=== PATIENT | female | born 1935 | race Caucasian/White ===

== ENCOUNTER 2017-08-31 20:12 | Inpatient (IN) | payer OTHER ==
[2017-08-31] VITALS (9 sets, daily range): BP systolic 93–113; BP diastolic 50–74; PULSE 66–77; TEMP 36.4; O2SAT 90–97; Ht 149.9 cm; Wt 45.3 kg
[~2017-08-31] VITALS: Ht 149.9 cm; Wt 45.3 kg
[~2017-08-31 20:12] MED LIST: CLTP PO; CYAN1TAB2 PO; IBUP-1050 PO
[2017-08-31] MEDS ORDERED: NiCARDipine HCL INJ 2.5 MG/ML 10 ML AMP ONE (20:33)
[2017-08-31] MEDS ORDERED: NITROGLYCERIN/D5W 100MCG/ML 20ML SYR ONE (20:34)
[2017-08-31] MEDS ORDERED: FENTANYL CITRATE INJ 50 MCG/1 ML 2 ML VIAL ONE (20:34)
[2017-08-31] MEDS ORDERED: HEPARIN SOD (PORCINE) 1000 UNIT/ML 10 ML VIAL ONE (20:34)
[2017-08-31] MEDS ORDERED: MIDAZOLAM HCL 1 MG/ML 2ML VIAL ONE (20:34)
--- NOTE | 2017-08-31 20:38 | DIAGNOSTIC IMAGING REPORT ---
CHEST ONE VIEW PORTABLE CLINICAL HISTORY: 82 years-old Female presenting with Chest Pain. TECHNIQUE: Portable upright AP view of the chest was obtained. COMPARISON: 03/11/2013. FINDINGS: Atherosclerosis of aortic arch. Cardiac silhouette mildly enlarged. Mild prominence of pulmonary vasculature comparison the prior. Minimal linear opacities at the lung bases. Degenerative changes of the thoracic spine. Upper abdomen normal. IMPRESSION: 1. Minimal basilar atelectasis suggested. 2. Mild cardiomegaly with suggestion of volume overload. No jewels pulmonary edema. Electronically signed by: Chago Perez M.D. 08/31/2017 8:37 PM Dictated Date/Time: 08/31/2017 8:33 PM
[2017-08-31 20:39] LABS: ISTAT CREATININE 0.6 mg/dl (0.6-1.3); ISTAT IONIZED CALCIUM 1.17 mmol/l (1.12-1.32); ISTAT POTASSIUM 3.6 mEq/L (3.3-5.0)
[2017-08-31 20:41] LABS: BASO % 0.3 %; BASO ABS # 0.02 K/uL (0-0.2); EOS % 0.7 %; EOS ABS # 0.04 K/uL (0-0.5); HEMATOCRIT 37.8 % (37-47); HEMOGLOBIN 13.2 g/dL (12.0-16.0); IG# 0.01 K/uL (0.00-0.02); LYMPH % 36.2 %; LYMPH ABS # 2.12 K/uL (1.2-3.4); MEAN CELL VOLUME 88.9 fL (80-100); MEAN CORPUSCULAR HEMOGLOBIN 31.1 pg (25-34); MEAN CORPUSCULAR HGB CONC 34.9 g/dl (32-36); MEAN PLATELET VOLUME 8.6 fL (7.4-10.4); MONO % 6.5 %; MONO ABS # 0.38 K/uL (0.11-0.59); NEUT % 56.1 %; NEUT ABS # 3.29 K/uL (1.4-6.5); PLATELET COUNT 250 K/uL (130-400); RED CELL DISTRIBUTION WIDTH CV 13.8 % (11.5-14.5); RED CELL DISTRIBUTION WIDTH SD 44.8 fL (36.4-46.3); WHITE BLOOD COUNT 5.86 K/uL (4.8-10.8)
[2017-08-31] MEDS ORDERED: SODIUM CHLORIDE 0.9% 1000ML 1,000 ML IV STA (20:42)
[2017-08-31 20:49] LABS: BLOOD UREA NITROGEN 6 mg/dl (7-18); CALCIUM 8.6 mg/dl (8.5-10.1); CARBON DIOXIDE 24 mmol/L (21-32); CREATININE 0.61 mg/dl (0.60-1.20); GLUCOSE 112 mg/dl (70-99); POTASSIUM 3.5 mmol/L (3.5-5.1); SODIUM 136 mmol/L (136-145)
[2017-08-31 20:57] LABS: CKMB 1.5 ng/ml (0.5-3.6)
[2017-08-31] MEDS ORDERED: CALC500C3 PO (21:00)
[2017-08-31] MEDS ORDERED: ESCI1TAB9 PO (21:00)
[2017-08-31] MEDS ORDERED: ATOR-22 PO (21:00)
[2017-08-31] MEDS ORDERED: DONE1TAB25 PO (21:00)
[2017-08-31] MEDS ORDERED: LORA-741 PO (21:00)
[2017-08-31] MEDS ORDERED: ASPI-589 PO (21:00)
[2017-08-31] MEDS ORDERED: AMLO-110 PO (21:00)
[2017-08-31] MEDS ORDERED: METOPROLOL TARTRATE 1 MG/ML VIAL ONE (21:09)
--- NOTE | 2017-08-31 21:14 | HISTORY & PHYSICAL EXAMINATION ---
DATE OF ADMISSION: 08/31/2017 CHIEF COMPLAINT: Chest pain. HISTORY OF PRESENT ILLNESS: This 82-year-old white female reports onset this evening time ill-defined of substernal chest discomfort "like someone punched me." mid substernal in origin, not associated with nausea, vomiting, diaphoresis, not associated with dyspnea, persistent on arrival to the Emergency Department. The patient has never had pain of this severity before. PAST MEDICAL HISTORY: Significant for hypertension and hyperlipidemia. The patient denies knowledge of diabetes mellitus though records suggest otherwise. The patient has no history of atherosclerotic cardiovascular disease, prior myocardial infarction or stroke. She has no history of congestive heart failure. PAST SURGICAL HISTORY: Significant for tubal ligation. CURRENT MEDICATIONS: Per medical records include only calcium plus vitamin D, ibuprofen p.r.n. ALLERGIES: The patient denies knowledge of IV contrast dye or iodine allergy. Records reflect no known drug allergy. FAMILY HISTORY: Significant for coronary artery disease only in the patient's father. SOCIAL HISTORY: The patient is an ongoing smoker and knows she needs to quit. REVIEW OF SYSTEMS: The patient denies bleeding problems such as epistaxis, hemoptysis, hematemesis, hematuria, melena, hematochezia. Denies palpitations, skipped or irregular heartbeats. Further review of systems negative. PHYSICAL EXAMINATION: VITAL SIGNS: Blood pressure 150/98, heart rate is 68 and regular, respiratory rate 16. The patient is afebrile. GENERAL: She is awake, alert, oriented x3, shivering on my arrival to her bed in the Emergency Department. NECK: Jugular venous pressure is minimally elevated at 60 degrees. Carotids arteries bilaterally 2/4 without bruits. Mallampati score of 4 is noted. HEART: Demonstrates a nonpalpable . No gallop or murmur appreciated. Rhythm is regular. LUNGS: Bilaterally clear to auscultation. No crackles or wheezing is noted. Hyperinflation is suggested. ABDOMEN: Soft, nontender with normoactive bowel sounds present. No pulsatile mass, no organomegaly, no bruits are appreciated. EXTREMITIES: Well perfused. No pretibial edema. Normal right hand Jaden's test is noted. EKG: Demonstrates sinus rhythm, normal axis, anteroseptal Q-waves with hyperacute ST elevation in V1 through V4. Reciprocal inferior ST depression is noted. LABORATORY DATA: Including BMP, CBC are pending. Chest x-ray done in the Emergency Department single view confirms some degree of hyperinflation, calcified aortic knob, normal heart size, no infiltrate, consolidation or effusion is noted. IMPRESSION: Acute versus subacute anteroseptal myocardial infarction. RECOMMENDATIONS: Urgent cardiac catheterization. Discussed with the patient indications for risks and alternatives to cardiac catheterization and possible percutaneous coronary intervention. All questions answered. ASA score of 2 is noted. MTDD
[2017-08-31] MEDS ORDERED: CLOPIDOGREL BISULFATE 300 MG TAB PO ONE (21:38)
[2017-08-31] MEDS ORDERED: ATROPINE SULFATE 0.1 MG/ML 5ML SYR IV PRN (21:45)
[2017-08-31] MEDS ORDERED: ONDANSETRON INJ 2 MG/ML 2 ML VIAL IV PRN (21:45)
[2017-08-31] MEDS ORDERED: SODIUM CHLORIDE 0.9% 1000ML 1,000 ML IV SCH (21:45)
[2017-08-31] MEDS ORDERED: NITROGLYCERIN 0.4 MG SL PER TAB CHARGE SL PRN (21:45)
[2017-08-31] MEDS ORDERED: DC ALL ANTICOAGULANTS ONE (21:45)
--- NOTE | 2017-08-31 22:22 | Critical Care Consultation ---
Critical Care Consultation Date of Consultation: Aug 31, 2017. Attending Physician: Reason for Consultation: 82-year-old female status post cardiac catheterization with bare-metal stent to the proximal LAD requiring close cardiac monitoring. History of Present Illness Patient is an 82-year-old female who was enjoying her typical state of health up until this evening. She reports that at approximately 7:30 PM, while ambulating to her house, she developed lightheadedness with associated chest pain. This caused her to fall to the ground. She denies striking her head or any loss of consciousness. Her is present and reports that she yelled for him immediately and he came to help her from the ground. He immediately called 911. In route to the emergency department, a heart alert was called. In route to the emergency department, the patient receives 2 nitroglycerin doses , 4 baby aspirin, and 4 mg Zofran. Her blood pressure was found to drop after nitroglycerin administration. She responded to 300 mL of fluid. She had persistent chest pain upon arrival to the emergency department. She was also expressing shortness of breath. In the emergency department, the patient received heparin loading dose as well as nicardipine 0.5 mg and fentanyl. She was directed to the catheterization lab where she underwent RIGHT-sided groin approach demonstrating a 100% occluded proximal LAD. Bare-metal stent was deployed with successful revascularization. Patient was experiencing AIVR runs. She received 5 mg IV metoprolol. She received 2 separate rounds of fentanyl and Versed during the procedure. She was pain-free after procedure. Upon arrival in the ICU, the patient complains of no pain at this time. She reports that she had no symptoms of pain for some breath prior to today. She does admit to smoking at least 1 pack of cigarettes per day. In addition, she drinks approximately 3 beers per day. Patient is a known history of high blood pressure. Family reports a history of dementia as well. She also reports high cholesterol. Patient offers no complains this time. She denies any headaches, dizziness, lightheadedness, blurry vision, double vision, slurred speech, facial droop, unilateral weakness/numbness, chest pain, palpitations, pleuritic pain, short of breath, nausea, vomiting, abdominal pain, or extremity pain. Past Medical/Surgical History Medical Problems: (1) Diab Viki Wo Compl, Type Ii Or Unspec Type, Not Uncntrld (2) Hyperlipidemia Nec/Nos (3) Hypoglycemia Nos Family History Cancer Heart disease Hypertension Heart Disease - Father Social History Smoking Status: Current Every Day Smoker Smokeless Tobacco Use: No Alcohol Use: occasionally Drug Use: none Marital Status: Housing Status: lives with family Occupation Status: retired Allergies Coded Allergies: No Known Allergies (Unverified , 11/17/06) Home Medications Scheduled Amlodipine (Norvasc), 5 MG PO DAILY Aspirin (Aspirin Adult Low Dose), 81 MG PO DAILY Atorvastatin (Lipitor), 20 MG PO HS Donepezil Hydrochloride (Donepezil Hcl), 5 MG PO HS Escitalopram Oxalate (Lexapro), 10 MG PO DAILY Scheduled PRN Calcium Carbonate (Tums), 500 MG PO UD PRN for Indigestion Lorazepam (Ativan), 0.25 MG PO UD PRN for Severe Anxiety Current Inpatient Medications Current Inpatient Medications Medications (Trade) Dose Ordered Sig/Natalia Route Start Time Stop Time Status Last Admin Dose Admin Nitroglycerin (Nitrostat Tab) 0.4 mg UD PRN SL 08/31/17 21:45 09/30/17 21:44 Sodium Chloride 1,000 ml @ 75 mls/hr [id number] IV 08/31/17 21:45 09/01/17 07:44 Atropine Sulfate (Atropine Sulfate 0.1MG/Ml Inj) 0.5 mg ONE PRN IV 08/31/17 21:45 09/30/17 21:44 Ondansetron HCl (Zofran Inj) 4 mg Q6H PRN IV 08/31/17 21:45 09/30/17 21:44 Aspirin (Ecotrin Tab) 81 mg QAM PO 09/01/17 09:00 10/01/17 08:59 Clopidogrel Bisulfate (plAVix TAB) 75 mg QAM PO 09/01/17 09:00 10/01/17 08:59 Atorvastatin Calcium (Lipitor Tab) 40 mg QAM PO 09/01/17 09:00 10/01/17 08:59 Metoprolol Tartrate (Lopressor Tab) 25 mg Q12 PO 09/01/17 09:00 10/01/17 08:59 Review of Systems A complete 10-point Review of Systems was discussed with the patient, with pertinent positives and negatives listed in the History of Present Illness. All remaining Review of Systems questions can be considered negative unless otherwise specified. Physical Exam Date Time Temp Pulse Resp B/P (MAP) Pulse Ox O2 Delivery O2 Flow Rate FiO2 08/31/17 21:40 70 18 102/68 (79) 94 Room Air 08/31/17 21:25 70 18 100/68 (79) 94 Room Air 08/31/17 20:41 76 08/31/17 20:40 81 22 134/92 95 08/31/17 20:32 84 24 101/85 96 Nasal Cannula 5.0 08/31/17 20:30 95 Nasal Cannula 5.0 08/31/17 20:30 36.4 75 24 124/90 95 Nasal Cannula 5.0 VITAL SIGNS - Vital signs and nursing notes were reviewed. GENERAL - 82-year-old female appearing her stated age who is in no acute distress. Communicates well with provider and answers questions appropriately. HEAD - NC/AT. EYES - PERRL with EOMI bilaterally. Sclera anicteric. Palpebral conjunctiva pink and moist with no injection noted. EARS - No deformities of external structures noted on gross examination bilaterally. NOSE - Midline and without cyanosis. MOUTH/OROPHARYNX - Without perioral cyanosis. Buccal mucosa pink and moist and without leukoplakia. NECK - Neck with FROM. Supple to palpation without JVD. LUNGS - Chest wall symmetric without accessory muscle use, intercostals retractions, or central cyanosis. Normal vesicular breath sounds CTA B/L. No wheezes, rales, or rhonchi appreciated. CARDIAC - RRR with S1/S2. No murmur, rubs, or gallops appreciated. No reproducible tenderness to palpation appreciated over the anterior chest wall. ABDOMEN - Abdominal contour flat and without pulsations or visible masses. BS normoactive all four quadrants. No tenderness, palpable masses, hepatosplenomegaly, or ascites noted. EXTREMITIES - No clubbing or peripheral cyanosis. No pretibial edema present. +3 /5 radial and dorsalis pedis pulses palpated throughout. +5/5 strength noted in UE/LE bilaterally. NEUROLOGIC - Cranial nerves II through XII grossly intact. Sensory intact to light touch throughout. PSYCH - A&Ox3 and cooperates fully with examiner. Pt is very pleasant and interacts well with examiner. Laboratory Results Last 24 Hours Test 08/31/17 20:22 08/31/17 20:23 08/31/17 20:26 08/31/17 20:58 White Blood Count 5.86 K/uL Red Blood Count 4.25 M/uL Hemoglobin 13.2 g/dL Hematocrit 37.8 % Mean Corpuscular Volume 88.9 fL Mean Corpuscular Hemoglobin 31.1 pg Mean Corpuscular Hemoglobin Concent 34.9 g/dl Platelet Count 250 K/uL Mean Platelet Volume 8.6 fL Neutrophils (%) (Auto) 56.1 % Lymphocytes (%) (Auto) 36.2 % Monocytes (%) (Auto) 6.5 % Eosinophils (%) (Auto) 0.7 % Basophils (%) (Auto) 0.3 % Neutrophils # (Auto) 3.29 K/uL Lymphocytes # (Auto) 2.12 K/uL Monocytes # (Auto) 0.38 K/uL Eosinophils # (Auto) 0.04 K/uL Basophils # (Auto) 0.02 K/uL RDW Standard Deviation 44.8 fL RDW Coefficient of Variation 13.8 % Immature Granulocyte % (Auto) 0.2 % Immature Granulocyte # (Auto) 0.01 K/uL Sodium Level 136 mmol/L Potassium Level 3.5 mmol/L Chloride Level 105 mmol/L Carbon Dioxide Level 24 mmol/L Anion Gap 8.0 mmol/L 18.0 mmol/L Blood Urea Nitrogen 6 mg/dl Creatinine 0.61 mg/dl Estimated GFR () 99.2 Estimated GFR (Non- 85.6 BUN/Creatinine Ratio 10.4 Random Glucose 112 mg/dl Calcium Level 8.6 mg/dl Total Creatine Kinase 33 U/L Creatine Kinase MB 1.5 ng/ml Creatine Kinase MB Ratio 4.5 Troponin I 0.107 ng/ml Bedside Troponin I 0.070 ng/ml Bedside Hemoglobin 12.2 g/dl Bedside Hematocrit 36 % Bedside Sodium 137 mEq/L Bedside Potassium 3.6 mEq/L Bedside Chloride 101 mEq/L Bedside Total CO2 22 mEq/l Bedside Blood Urea Nitrogen 4 mg/dl Bedside Creatinine 0.6 mg/dl Bedside Glucose (other) 116 mg/dl Bedside Ionized Calcium (Mariana) 1.17 mmol/l Kaolin Activated Coagulation Time 164 SECONDS Test 08/31/17 21:17 08/31/17 21:27 08/31/17 21:36 Kaolin Activated Coagulation Time 191 SECONDS 230 SECONDS Diagnostic Results Radiological imaging and reports were reviewed by myself. Radiologist's Interpretation as follows: CHEST ONE VIEW PORTABLE CLINICAL HISTORY: 82 years-old Female presenting with Chest Pain. TECHNIQUE: Portable upright AP view of the chest was obtained. COMPARISON: 03/11/2013. FINDINGS: Atherosclerosis of aortic arch. Cardiac silhouette mildly enlarged. Mild prominence of pulmonary vasculature comparison the prior. Minimal linear opacities at the lung bases. Degenerative changes of the thoracic spine. Upper abdomen normal. IMPRESSION: 1. Minimal basilar atelectasis suggested. 2. Mild cardiomegaly with suggestion of volume overload. No jewels pulmonary edema. 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 Neuro - * CAM ICU: NEGATIVE * Dementia - Continue Donepezil/Lexapro * Daily Alcohol Use - admits to 3-4 beers per evening. * [facility] protocol. Cardiac - * Acute 100% Proximal LAD Occlusion w/ Bare-Metal Stenting: * Start on Metoprolol, Plavix, ASA, Johnson, Statin. * AIVR noted - received 5 mg Metoprolol IV. * Echo tomorrow. * Cardiology consultation per Interventionalist's request. * Initial Troponin 0.107 - Trend * Fasting lipids * Initial EKG - Anterioseptal ST elevation w/ QTc of 464 ms * Daily EKGs and w/ chest pain. Respiratory - * Extensive smoking history - Education on cessation. * O2 supplementation PRN - titrate down as tolerated. * AM CXR in f/u from ED films. * Continuous Pulse Oximetry Monitoring. GI - * NPO Overnight. * AHA Diet in the AM RENAL/LYTES - * Monitor daily - replace appropriately. * Added 40 mEq of KCl orally 2/2 K+ of 3.5 while receiving IVF of NSS. - * Beck Catheter in place. * Strict I&Os ENDO - * Prior documented h/o DM, however no active medications on med rec. * Will add A1c on AM labs. * No h/o Thyroid Disease. HEME - * Stable H&H - will monitor daily. ID - * No concerns for infection at this time. * Will trend fever curve. LINES/IV ACCESS - * PIVs intact. * Dressing in place to the RIGHT groin s/p sheath from approach - will monitor. DVT PROPHYLAXIS - * Initially received Heparin Bolus in the ED * Will add BID heparin. * To receive Plavix tomorrow AM. * SCDs. I have personally spent 35 minutes of critical care time in the direct management of this patient. This is a life/limb threatening event. This includes time spent evaluating patient, direct bedside care, chart review, placing orders, interpretation of diagnostic studies, discussion with consultants, patient, and family members, as well as other required patient management activities. This time is exclusive of all separately billable procedures, and teaching time and separate from and in addition to any other critical care service time. Thank you for this consultation allow us to be part of this patient's care. Please refer to my attending physician's documentation for any further recommendations. Problem Qualifiers (1) STEMI (ST elevation myocardial infarction): Involved coronary artery: unspecified coronary artery Qualified Codes: I21.3 - ST elevation (STEMI) myocardial infarction of unspecified site
--- NOTE | 2017-08-31 23:00 | EMERGENCY ROOM VISIT NOTE ---
History Report prepared by Scribe: Baltazar Peaz Under the Supervision of: Dr. Kenny St D.O. First contact with patient: 20:15 Stated Complaint: MO History of Present Illness The patient is a 82 year old female who presents to the Emergency Room with complaints of constant mid chest pain that started prior to arrival. She describes the sensation as a heavy sensation. The patient states that she called EMS 10-15 minutes after the chest pain started. Per EMS, the patient was given 4 Zofran, 4 aspirin, and 2 nitroglycerin. They report that after giving her nitroglycerin, her blood pressure dropped. EMS states that they also gave her 300 ml of fluids. The patient states that she is currently experiencing chest pain and states that it is painful to breath. She states that she is experiencing shortness of breath. The patient denies any jaw pain, arm pain, abdominal pain, numbness, weakness. She denies a history of COPD, smoking, previous heart attacks, surgeries, blood clots, and recent travel. The patient reports a history of hypertension and hyperlipidemia. 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 A total of 10 systems reviewed and were otherwise negative. Past Medical & Surgical Medical Problems: (1) Diab Viki Wo Compl, Type Ii Or Unspec Type, Not Uncntrld (2) Hyperlipidemia Nec/Nos (3) Hypoglycemia Nos Family History Cancer Heart disease Hypertension Social History Marital Status: Housing Status: lives with significant other Occupation Status: retired Current/Historical Medications Scheduled Amlodipine (Norvasc), 5 MG PO DAILY Aspirin (Aspirin Adult Low Dose), 81 MG PO DAILY Atorvastatin (Lipitor), 20 MG PO HS Donepezil Hydrochloride (Donepezil Hcl), 5 MG PO HS Escitalopram Oxalate (Lexapro), 10 MG PO DAILY Scheduled PRN Calcium Carbonate (Tums), 500 MG PO UD PRN for Indigestion Lorazepam (Ativan), 0.25 MG PO UD PRN for Severe Anxiety Allergies Coded Allergies: No Known Allergies (Unverified , 11/17/06) Physical Exam Vital Signs Date Time Temp Pulse Resp B/P (MAP) Pulse Ox O2 Delivery O2 Flow Rate FiO2 08/31/17 22:31 77 13 98/62 (74) 97 Nasal Cannula 4.0 08/31/17 22:16 74 16 93/61 (72) 90 Nasal Cannula 4.0 08/31/17 22:01 36.4 73 18 105/50 (68) 92 Nasal Cannula 4.0 08/31/17 21:40 70 18 102/68 (79) 94 Room Air 08/31/17 21:25 70 18 100/68 (79) 94 Room Air 08/31/17 20:41 76 08/31/17 20:40 81 22 134/92 95 08/31/17 20:32 84 24 101/85 96 Nasal Cannula 5.0 08/31/17 20:30 95 Nasal Cannula 5.0 08/31/17 20:30 36.4 75 24 124/90 95 Nasal Cannula 5.0 Physical Exam GENERAL: Sitting up in bed, ill appearing, in moderate distress, cachectic, on nasal canula. EYE EXAM: normal conjunctiva. OROPHARYNX: no exudate, no erythema, lips, buccal mucosa, and tongue normal and mucous membranes are moist NECK: supple, no nuchal rigidity, no adenopathy, non-tender LUNGS: Clear to auscultation. Normal chest wall mechanics HEART: no murmurs, S1 normal and S2 normal ABDOMEN: abdomen soft, non-tender, normo-active bowel sounds, no masses, no rebound or guarding. BACK: Back is symmetrical on inspection and there is no deformity, no midline tenderness, no CVA tenderness. SKIN: no rashes and no bruising UPPER EXTREMITIES: upper extremities are grossly normal. Radial pulses are 2/4. LOWER EXTREMITIES: No pitting edema. Calves are equal bilaterally. Distal pulses are 2/4. NEURO EXAM: Normal sensorium, cranial nerves II-XII intact, normal speech, no weakness of arms, no weakness of legs. Gross sensation intact. Medical Decision & Procedures ER Provider Diagnostic Interpretation: Radiology results as stated below per my review and the radiologist's interpretation: CHEST ONE VIEW PORTABLE CLINICAL HISTORY: 82 years-old Female presenting with Chest Pain. TECHNIQUE: Portable upright AP view of the chest was obtained. COMPARISON: 03/11/2013. FINDINGS: Atherosclerosis of aortic arch. Cardiac silhouette mildly enlarged. Mild prominence of pulmonary vasculature comparison the prior. Minimal linear opacities at the lung bases. Degenerative changes of the thoracic spine. Upper abdomen normal. IMPRESSION: 1. Minimal basilar atelectasis suggested. 2. Mild cardiomegaly with suggestion of volume overload. No jewels pulmonary edema. Electronically signed by: Chago Perez M.D. 08/31/2017 8:37 PM Dictated Date/Time: 08/31/2017 8:33 PM Laboratory Results 08/31/17 20:22 Red Blood Count 4.25, Mean Corpuscular Volume 88.9, Mean Corpuscular Hemoglobin 31.1, Mean Corpuscular Hemoglobin Concent 34.9, Mean Platelet Volume 8.6, Neutrophils (%) (Auto) 56.1, Lymphocytes (%) (Auto) 36.2, Monocytes (%) (Auto) 6.5, Eosinophils (%) (Auto) 0.7, Basophils (%) (Auto) 0.3, Neutrophils # (Auto) 3.29, Lymphocytes # (Auto) 2.12, Monocytes # (Auto) 0.38, Eosinophils # (Auto) 0.04, Basophils # (Auto) 0.02 08/31/17 20:22 Test 08/31/17 20:22 08/31/17 20:23 08/31/17 20:26 08/31/17 21:27 White Blood Count 5.86 K/uL (4.8-10.8) Red Blood Count 4.25 M/uL (4.2-5.4) Hemoglobin 13.2 g/dL (12.0-16.0) Hematocrit 37.8 % (37-47) Mean Corpuscular Volume 88.9 fL (80-100) Mean Corpuscular Hemoglobin 31.1 pg (25-34) Mean Corpuscular Hemoglobin Concent 34.9 g/dl (32-36) Platelet Count 250 K/uL (130-400) Mean Platelet Volume 8.6 fL (7.4-10.4) Neutrophils (%) (Auto) 56.1 % Lymphocytes (%) (Auto) 36.2 % Monocytes (%) (Auto) 6.5 % Eosinophils (%) (Auto) 0.7 % Basophils (%) (Auto) 0.3 % Neutrophils # (Auto) 3.29 K/uL (1.4-6.5) Lymphocytes # (Auto) 2.12 K/uL (1.2-3.4) Monocytes # (Auto) 0.38 K/uL (0.11-0.59) Eosinophils # (Auto) 0.04 K/uL (0-0.5) Basophils # (Auto) 0.02 K/uL (0-0.2) RDW Standard Deviation 44.8 fL (36.4-46.3) RDW Coefficient of Variation 13.8 % (11.5-14.5) Immature Granulocyte % (Auto) 0.2 % Immature Granulocyte # (Auto) 0.01 K/uL (0.00-0.02) Estimated GFR () 99.2 Estimated GFR (Non- 85.6 BUN/Creatinine Ratio 10.4 (10-20) Calcium Level 8.6 mg/dl (8.5-10.1) Total Creatine Kinase 33 U/L (26-192) Creatine Kinase MB 1.5 ng/ml (0.5-3.6) Creatine Kinase MB Ratio 4.5 (0-3.0) Troponin I 0.107 ng/ml (0-0.045) Bedside Troponin I 0.070 ng/ml (0-0.045) Bedside Hemoglobin 12.2 g/dl (12.0-16.0) Bedside Hematocrit 36 % (37-47) Bedside Sodium 137 mEq/L (135-144) Bedside Potassium 3.6 mEq/L (3.3-5.0) Bedside Chloride 101 mEq/L (101-112) Bedside Total CO2 22 mEq/l (24-31) Anion Gap 18.0 mmol/L (16-25) Bedside Blood Urea Nitrogen 4 mg/dl (7-18) Bedside Creatinine 0.6 mg/dl (0.6-1.3) Bedside Glucose (other) 116 mg/dl (70-99) Bedside Ionized Calcium (Mariana) 1.17 mmol/l (1.12-1.32) Kaolin Activated Coagulation Time 230 SECONDS (94-140) Test 08/31/17 21:36 Laboratory results per my review. Medications Administered Medications (Trade) Dose Ordered Sig/Natalia Route Start Time Stop Time Status Last Admin Dose Admin Heparin Sodium/ Sodium Chloride (Heparin Sod/Ns 2 Units/Ml) 3,000 unit STK-MED ONCE .ROUTE 08/31/17 20:33 08/31/17 20:34 DC 08/31/17 20:33 3,000 UNIT Heparin Sodium (Porcine) (Heparin Iv Bolus) 10,000 unit STK-MED ONCE .ROUTE 08/31/17 20:34 08/31/17 20:35 DC 08/31/17 20:34 10,000 UNIT Midazolam HCl (Versed Inj) 2 mg STK-MED ONCE .ROUTE 08/31/17 20:34 08/31/17 20:35 DC 08/31/17 20:34 2 MG Fentanyl Citrate (Fentanyl Inj) 100 mcg STK-MED ONCE .ROUTE 08/31/17 20:34 08/31/17 20:35 DC 08/31/17 20:34 50 MCG Sodium Chloride 1,000 ml @ 999 mls/hr Q1H1M STAT IV 08/31/17 20:42 08/31/17 21:42 DC 08/31/17 20:42 999 MLS/HR Metoprolol Tartrate (Lopressor Iv) 5 mg STK-MED ONCE .ROUTE 08/31/17 21:09 08/31/17 21:10 DC 08/31/17 21:09 5 MG Clopidogrel Bisulfate (plAVix TAB) 600 mg STK-MED ONCE PO 08/31/17 21:38 08/31/17 21:39 DC 08/31/17 21:38 600 MG ECG Indication: chest pain Rate (beats per minute): 75 Rhythm: normal sinus Findings: ST depression (Inferior), other (STEMI in septal, anterior, lateral, and high lateral) ED Course ED COURSE: Vital signs were reviewed and showed hypotensive. The patients medical record was reviewed The above diagnostic studies were performed and reviewed. ED treatments and interventions as stated above. 2012: The patient was evaluated in room A01. A complete history and physical examination was performed. 2021: The patient reports that the pain is not as severe. 2028:I reevaluated the patient and she is still in pain. The director motion picture is at bedside. 2030: The charge nurse updated the patient's family. 3: Ordered Heparin Sodium/ Sodium chloride 3000 unite IV, Nicardipine HCl 25 mg IV. 2033: Ordered Fentanyl Injection 100 mcg IV, Versed Injection 2 mg IV, Nitroglycerin/Dextrose 2000 mcg IV. 2041: Ordered Sodium Chloride 1000 ml @ 999 mls/hr IV. 2044: I discussed the patient's case with Dr. Velásquez, [facility] Cardiology. He understands the patient's condition and agrees to accept the patient. The patient will be further evaluated. Medical Decision Differential diagnoses includes but is not limited to acute coronary syndrome, myocardial infarction, pericarditis, pulmonary embolus, aortic dissection, pneumonia, pneumothorax, musculoskeletal, shingles, esophageal. Patient is an 82-year-old female who presents to ER for chest pain associated with shortness of breath and jaw pain. I received medical command call on this patient. EKG was reviewed and based on history I called a STEMI alert. I evaluated the patient in a 1. Bedside ultrasound shows no pericardial effusion. CBC was unremarkable. BMP was benign. Troponin was elevated. Chest x-ray shows no focal signs of dissection. Laboratory was obtained. Patient received aspirin prior to arrival. Patient received 2 nitroglycerin in route which dropped systolic pressures in the 90s. Patient was given a bolus normal saline. Pads were placed. The etiology present at bedside and evaluated her. She was taken emergently to the catheterization lab. Medication Reconcilliation Current Medication List: was personally reviewed by me Blood Pressure Screening Patient's blood pressure: Normal blood pressure Consults Time Called: 2044 Consulting Physician: Dr. Velásquez, [facility] Cardiology Returned Call: 2044 I discussed the patient's case with Dr. Velásquez, [facility] Cardiology. He understands the patient's condition and agrees to accept the patient. The patient will be further evaluated. Impression Primary Impression: STEMI (ST elevation myocardial infarction) Scribe Attestation The scribe's documentation has been prepared under my direction and personally reviewed by me in its entirety. I confirm that the note above accurately reflects all work, treatment, procedures, and medical decision making performed by me. Departure Information Dispostion Being Evaluated By Hospitalist Problem Qualifiers Primary Impression: STEMI (ST elevation myocardial infarction) Involved coronary artery: unspecified coronary artery Qualified Codes: I21.3 - ST elevation (STEMI) myocardial infarction of unspecified site
[2017-08-31] MEDS ORDERED: INFLUENZA ADMINISTRATION CHARGE ONE (23:30)
[2017-08-31] MEDS ORDERED: INFLUENZA VIRUS QUAD VACCINE 0.5 ML SYR IM. ONE (23:30)
[2017-08-31 23:51] LABS: CHOLESTEROL 230 mg/dl (0-200); LDL CHOLESTEROL CALCULATED 128 mg/dl
[2017-09-01] VITALS (38 sets, daily range): BP systolic 96–125; BP diastolic 61–87; PULSE 66–88; TEMP 36.6–37.1; O2SAT 85–98
[2017-09-01] MEDS ORDERED: LORAZEPAM 0.5 MG TAB PO PRN (00:30)
[2017-09-01] MEDS ORDERED: LORAZEPAM 1 MG TAB PO PRN (00:30)
[2017-09-01] MEDS ORDERED: CALCIUM CARBONATE 500 MG CHEWABLE PO PRN (00:30)
[2017-09-01] MEDS ORDERED: ATORVASTATIN 40 MG TAB PO ONE (02:15)
--- NOTE | 2017-09-01 03:03 | History and Physical ---
History & Physical Date & Time of Service: Sep 01, 2017 at 02:47 Chief Complaint: Occlusion Of Lad Artery, Stemi Primary Care Physician: Jaya Almodovar M.D. History of Present Illness Source: patient, family, hospital records The patient is an 82-year-old female who presented to the emergency department with constant midsternal chest pain that began prior to arrival. She called EMS 10-15 minutes after the pain started, and when they arrived was given Zofran, aspirin and nitroglycerin. Her systolic blood pressure dropped into the 90s after the nitroglycerin, at which time she was given 300 ML's of IV fluids. Upon arrival in the ED the patient complained of chest pain and shortness of breath without radiation of pain. A heart alert had been called, and the patient was taken emergently to the [facility], where a stent was placed in an LAD occlusion, and patient was then taken to the ICU for ongoing care. Post procedure, the patient had no complaints, reporting that the chest pain and shortness of breath had resolved. Past Medical/Surgical History Medical Problems: (1) Diab Viki Wo Compl, Type Ii Or Unspec Type, Not Uncntrld Status: Chronic (2) Hyperlipidemia Nec/Nos Status: Chronic (3) Hypertension Status: Chronic (4) Hypoglycemia Nos Status: Chronic Family History Cancer Heart disease Hypertension Social History Smoking Status: Current Every Day Smoker Smokeless Tobacco Use: No Alcohol Use: heavy Drug Use: none Marital Status: Housing status: lives with family Occupational Status: retired Immunizations History of Influenza Vaccine: Unknown History of Tetanus Vaccine?: Unknown History of Pneumococcal: Unknown History of Hepatitis B Vaccine: Unknown Multi-Drug Resistant Organisms History of MDRO: No Allergies Coded Allergies: No Known Allergies (Unverified , 11/17/06) Home Medications Scheduled Amlodipine (Norvasc), 5 MG PO DAILY Aspirin (Aspirin Adult Low Dose), 81 MG PO DAILY Atorvastatin (Lipitor), 20 MG PO HS Donepezil Hydrochloride (Donepezil Hcl), 5 MG PO HS Escitalopram Oxalate (Lexapro), 10 MG PO DAILY Scheduled PRN Calcium Carbonate (Tums), 500 MG PO UD PRN for Indigestion Lorazepam (Ativan), 0.25 MG PO UD PRN for Severe Anxiety Review of Systems Post cardiac catheterization, the patient denies chest pain, palpitations, shortness of breath, cough, lower extremity swelling, vision change, hearing change, sore throat, fevers, chills, sweats, nausea, vomiting, diarrhea or constipation , abdominal pain, pelvic pain, blood in urine or stool, dysuria, urinary frequency or urgency, lightheadedness , dizziness, headache, focal or generalized weakness, numbness or tingling in arms or legs, generalized arthralgias or myalgias, back or neck pain. The review of systems is otherwise negative other than for that already noted above, and at least 10 systems have been reviewed. Physical Exam Vital Signs Date Time Temp Pulse Resp B/P (MAP) Pulse Ox O2 Delivery O2 Flow Rate FiO2 09/01/17 02:30 70 10 111/71 (84) 96 Nasal Cannula 2.0 09/01/17 02:00 78 17 100/61 (74) 95 Nasal Cannula 2.0 09/01/17 01:30 74 21 109/71 (84) 95 Nasal Cannula 2.0 09/01/17 01:00 75 15 105/67 (80) 96 Nasal Cannula 2.0 09/01/17 00:45 74 15 106/68 (81) 95 Nasal Cannula 2.0 09/01/17 00:31 72 19 97/65 (76) 96 Nasal Cannula 2.0 09/01/17 00:01 36.7 72 14 106/74 (85) 94 Nasal Cannula 2.0 09/01/17 00:01 72 14 106/74 (85) 94 09/01/17 00:00 71 19 93 08/31/17 23:59 94 Nasal Cannula 2.0 08/31/17 23:45 70 16 110/74 (86) 97 Nasal Cannula 2.0 08/31/17 23:30 70 20 112/72 (85) 96 Nasal Cannula 2.0 08/31/17 23:15 73 17 113/68 (83) 97 Nasal Cannula 4.0 08/31/17 23:00 69 19 108/74 (85) 96 Nasal Cannula 4.0 08/31/17 22:31 77 13 98/62 (74) 97 Nasal Cannula 4.0 08/31/17 22:16 74 16 93/61 (72) 90 Nasal Cannula 4.0 08/31/17 22:01 36.4 73 18 105/50 (68) 92 Nasal Cannula 4.0 08/31/17 22:00 36.4 66 18 104/73 96 Nasal Cannula 4.0 08/31/17 21:40 70 18 102/68 (79) 94 Room Air 08/31/17 21:25 70 18 100/68 (79) 94 Room Air 08/31/17 20:41 76 08/31/17 20:40 81 22 134/92 95 08/31/17 20:32 84 24 101/85 96 Nasal Cannula 5.0 08/31/17 20:30 95 Nasal Cannula 5.0 08/31/17 20:30 36.4 75 24 124/90 95 Nasal Cannula 5.0 The patient is awake, well-developed and adequately nourished, alert and oriented 3, normocephalic and atraumatic, lying in bed and in no acute distress. HEENT--PERRL, EOMI, mucous membranes and oropharynx dry. Neck--supple, no JVD or bruits, thyroid normal, trachea midline, no adenopathy. Heart--normal S1 and S2, no extra beats, no murmurs, rubs or gallops. Lungs--diminished breath sounds throughout, no respiratory distress, no accessory muscle use. Abdomen--normal bowel sounds and soft, nontender and nondistended, no hernias or masses, no organomegaly. Extremities--no cyanosis, clubbing or edema. There are good distal pulses b/l. Dermatologic--normal skin turgor, normal color, warm and dry, no abnormal lymph nodes, no rash. Neurologic--cranial nerves II through XII grossly intact. Rheumatologic--normal range of motion. Psychiatric--normal affect. Diagnostics Laboratory Results Results Past 24 Hours Test 08/31/17 20:22 08/31/17 20:23 08/31/17 20:26 08/31/17 20:58 Range/Units White Blood Count 5.86 4.8-10.8 K/uL Red Blood Count 4.25 4.2-5.4 M/uL Hemoglobin 13.2 12.0-16.0 g/dL Hematocrit 37.8 37-47 % Mean Corpuscular Volume 88.9 80-100 fL Mean Corpuscular Hemoglobin 31.1 25-34 pg Mean Corpuscular Hemoglobin Concent 34.9 32-36 g/dl Platelet Count 250 130-400 K/uL Mean Platelet Volume 8.6 7.4-10.4 fL Neutrophils (%) (Auto) 56.1 % Lymphocytes (%) (Auto) 36.2 % Monocytes (%) (Auto) 6.5 % Eosinophils (%) (Auto) 0.7 % Basophils (%) (Auto) 0.3 % Neutrophils # (Auto) 3.29 1.4-6.5 K/uL Lymphocytes # (Auto) 2.12 1.2-3.4 K/uL Monocytes # (Auto) 0.38 0.11-0.59 K/uL Eosinophils # (Auto) 0.04 0-0.5 K/uL Basophils # (Auto) 0.02 0-0.2 K/uL RDW Standard Deviation 44.8 36.4-46.3 fL RDW Coefficient of Variation 13.8 11.5-14.5 % Immature Granulocyte % (Auto) 0.2 % Immature Granulocyte # (Auto) 0.01 0.00-0.02 K/uL Sodium Level 136 136-145 mmol/L Potassium Level 3.5 3.5-5.1 mmol/L Chloride Level 105 98-107 mmol/L Carbon Dioxide Level 24 21-32 mmol/L Anion Gap 8.0 18.0 16-25 mmol/L Blood Urea Nitrogen 6 7-18 mg/dl Creatinine 0.61 0.60-1.20 mg/dl Estimated GFR () 99.2 Estimated GFR (Non- 85.6 BUN/Creatinine Ratio 10.4 10-20 Random Glucose 112 70-99 mg/dl Calcium Level 8.6 8.5-10.1 mg/dl Total Creatine Kinase 33 26-192 U/L Creatine Kinase MB 1.5 0.5-3.6 ng/ml Creatine Kinase MB Ratio 4.5 0-3.0 Troponin I 0.107 0-0.045 ng/ml Triglycerides Level 285 0-150 mg/dl Cholesterol Level 230 0-200 mg/dl HDL Cholesterol 45 mg/dl LDL Cholesterol, Calculated 128 mg/dl VLDL Cholesterol, Calculated 57 mg/dl Cholesterol/HDL Ratio 5.1 Bedside Troponin I 0.070 0-0.045 ng/ml Bedside Hemoglobin 12.2 12.0-16.0 g/dl Bedside Hematocrit 36 37-47 % Bedside Sodium 137 135-144 mEq/L Bedside Potassium 3.6 3.3-5.0 mEq/L Bedside Chloride 101 101-112 mEq/L Bedside Total CO2 22 24-31 mEq/l Bedside Blood Urea Nitrogen 4 7-18 mg/dl Bedside Creatinine 0.6 0.6-1.3 mg/dl Bedside Glucose (other) 116 70-99 mg/dl Bedside Ionized Calcium (Mariana) 1.17 1.12-1.32 mmol/l Kaolin Activated Coagulation Time 164 94-140 SECONDS Test 08/31/17 21:17 08/31/17 21:27 08/31/17 23:27 Range/Units Kaolin Activated Coagulation Time 191 230 94-140 SECONDS Bedside Glucose 123 70-90 mg/dl Microbiology Results 08/31/17 MRSA DNA Surveillance Screen - Final, Complete Specimen Negative for MRSA by DNA Probe Diagnostic Radiology Patient Name: ARCHANA SANTIAGO Unit Number: [id number] Dictated: 08/31/172032 Transcribed: 08/31/172032 PBS Printed Date/Time: [~ rep prt dt]/[~ rep prt tm] [~ rep ct labl] - [~ rep ct ivnm] [facility] [place] [address] Dictated: 08/31/172032 Transcribed: 08/31/172032 PBS Printed Date/Time: [~ rep prt dt]/[~ rep prt tm] [~ rep ct labl] - [~ rep ct ivnm] [~ rep ct add3]] CHEST ONE VIEW PORTABLE CLINICAL HISTORY: 82 years-old Female presenting with Chest Pain. TECHNIQUE: Portable upright AP view of the chest was obtained. COMPARISON: 03/11/2013. FINDINGS: Atherosclerosis of aortic arch. Cardiac silhouette mildly enlarged. Mild prominence of pulmonary vasculature comparison the prior. Minimal linear opacities at the lung bases. Degenerative changes of the thoracic spine. Upper abdomen normal. IMPRESSION: 1. Minimal basilar atelectasis suggested. 2. Mild cardiomegaly with suggestion of volume overload. No jewels pulmonary edema. Electronically signed by: Chago Perez M.D. 08/31/2017 8:37 PM Dictated Date/Time: 08/31/2017 8:33 PM The status of this report is Signed. Draft = Not yet reviewed or approved by Radiologist. Signed = Reviewed and approved by Radiologist. <AttendingPhy></AttendingPhy> <FamilyPhy>Jaya Almodovar M.D.</FamilyPhy> < PrimaryPhy>Naty Vazquez, DO</PrimaryPhy> <UnitNumber>[id number]</UnitNumber > <VisitNumber>[id number]</VisitNumber> <PatientName>ARCHANA SANTIAGO</PatientName > <DateOfBirth>1935</DateOfBirth> <Location[facility]</Location> <ServiceDate> 08/31/17</ServiceDate> <MNE>ESINDI</MNE> <OrderingPhy>Kenny St DO</ OrderingPhy> <OrderingPhyMNE>f rep ord dr diaz</OrderingPhyMNE> <DictatingPhyMNE> f rep dict dr diaz</DictatingPhyMNE> <CCListMNE>f rep ct seane</CCListMNE> < AdmittingPhyMNE>f pt admit dr diaz</AdmittingPhyMNE> <AttendingPhyMNE>f pt attend dr diaz</AttendingPhyMNE> <ConsultingPhyMNE>f pt consult dr diaz</ConsultingPhyMNE> <FamilyPhyMNE>f pt fam dr diaz</FamilyPhyMNE> <OtherPhyMNE>f pt other dr diaz</OtherPhyMNE> < PrimaryPhyMNE>f pt prim care dr diaz</PrimaryPhyMNE> <ReferringPhyMNE>f pt referring dr diaz</ReferringPhyMNE> EKG EKG showed normal sinus rhythm at 69 bpm, with ST elevation inferior laterally Impression Assessment and Plan STEMI/LAD OCCLUSION/ PLACEMENT OF STENT-- The patient will be admitted to the ICU for ongoing care. Aspirin, Plavix, metoprolol and routine post cath infusions have been ordered. We will increase atorvastatin from 20 - 80 mg by mouth now and daily. Holding amlodipine, starting lisinopril 5 mg by mouth daily. Diabetes mellitus-- Has a noted history but is not on medications at this time We'll check a hemoglobin A1c Glucose on labs in the ED was 112. Tobacco use disorder-- Reportedly smokes 1-1/2 packs per day Tobacco counseling Depression/dementia-- Continue Lexapro 10 mg by mouth daily and donepezil 5 mg by mouth at bedtime. Level of Care Critical Care Advanced Directives Existing Advance Directive: No Existing Living Will: No Existing Power of Ledger Poster: No Resuscitation Status FULL RESUSCITATION VTE Prophylaxis VTE Risk Assessment Done? Y/N: Yes Risk Level: High Note Total Time: Critical Care 30 - 74 minutes
[2017-09-01] MEDS ORDERED: POTASSIUM CHLORIDE PWD 20 MEQ PACK PO SCH (04:00)
[2017-09-01 05:24] LABS: BASO % 0.1 %; BASO ABS # 0.01 K/uL (0-0.2); EOS % 0.3 %; EOS ABS # 0.02 K/uL (0-0.5); HEMATOCRIT 33.8 % (37-47); HEMOGLOBIN 11.5 g/dL (12.0-16.0); IG# 0.01 K/uL (0.00-0.02); LYMPH % 18.1 %; LYMPH ABS # 1.43 K/uL (1.2-3.4); MEAN CELL VOLUME 90.1 fL (80-100); MEAN CORPUSCULAR HEMOGLOBIN 30.7 pg (25-34); MEAN PLATELET VOLUME 8.5 fL (7.4-10.4); MONO % 7.8 %; MONO ABS # 0.62 K/uL (0.11-0.59); NEUT % 73.6 %; NEUT ABS # 5.83 K/uL (1.4-6.5); PLATELET COUNT 224 K/uL (130-400); RED CELL DISTRIBUTION WIDTH CV 13.9 % (11.5-14.5); RED CELL DISTRIBUTION WIDTH SD 46.2 fL (36.4-46.3); WHITE BLOOD COUNT 7.92 K/uL (4.8-10.8)
[2017-09-01 05:25] LABS: PTT PATIENT 26.3 SECONDS (21.0-31.0)
[2017-09-01 05:43] LABS: ALT/SGPT 48 U/L (12-78); AST/SGOT 454 U/L (15-37); BLOOD UREA NITROGEN 7 mg/dl (7-18); CALCIUM 8.2 mg/dl (8.5-10.1); CARBON DIOXIDE 24 mmol/L (21-32); CREATININE 0.61 mg/dl (0.60-1.20); GLUCOSE 110 mg/dl (70-99); POTASSIUM 4.9 mmol/L (3.5-5.1); SODIUM 133 mmol/L (136-145)
[2017-09-01 06:06] LABS: ALKALINE PHOSPHATASE 47 U/L (45-117); TOTAL PROTEIN 5.7 gm/dl (6.4-8.2)
[2017-09-01 06:59] LABS: HEMOGLOBIN A1C 5.8 % (4.5-5.6)
--- NOTE | 2017-09-01 08:28 | DIAGNOSTIC IMAGING REPORT ---
CHEST ONE VIEW PORTABLE HISTORY: Myocardial infarction. COMPARISON: Chest 08/31/2017. FINDINGS: Bibasilar linear densities persist and likely represent subsegmental atelectasis. Otherwise, the lungs are. No pleural effusions. No pneumothorax. Left proximal tracheal deviation is again noted. Stable right hilar prominence. The heart is borderline enlarged. This is also unchanged. IMPRESSION: No significant change compared to the prior study. No acute process. Bibasilar atelectasis persists. Electronically signed by: Avi Lott M.D. 09/01/2017 8:26 AM Dictated Date/Time: 09/01/2017 8:25 AM
[2017-09-01] MEDS ORDERED: METOPROLOL TARTRATE 25 MG TAB PO SCH (09:00)
[2017-09-01] MEDS ORDERED: CLOPIDOGREL BISULFATE 75 MG TAB PO SCH (09:00)
[2017-09-01] MEDS ORDERED: ATORVASTATIN 40 MG TAB PO SCH (09:00)
[2017-09-01] MEDS ORDERED: ASPIRIN 81 MG ECTAB PO SCH (09:00)
[2017-09-01] MEDS: ESCITALOPRAM OXALATE 10 MG TAB PO SCH (09:20)
[2017-09-01] MEDS: LISINOPRIL 5 MG TAB PO SCH (09:20)
[2017-09-01] MEDS: HEPARIN SOD 5000 UNIT/0.5 ML CARP SQ SCH ×2 (09:28→20:41)
[2017-09-01] MEDS ORDERED: ASPIRIN 81 MG ECTAB PO STA (10:01)
[2017-09-01] MEDS ORDERED: METOPROLOL SUCC 25MG EXT REL TAB PO STA (10:03)
--- NOTE | 2017-09-01 10:11 | Critical Care Progress Note ---
Critical Care Progress Note Date of Service Sep 01, 2017. Attending Dr. Mulligan Subjective The patient is asymptomatic this a.m., she denies any chest pain, no lightheadedness or near syncopal episode as she did before, she has no shortness of breath no nausea or vomiting and no heartburn. She did not have any abdominal pain. No increased swelling in her lower extremities. She developed small hematoma at the right groin area but appeared to be stable no active bleeding. Her vital signs remained stable as well. No new symptoms and the rest of her review of system was unremarkable. Objective As above. In addition her physical exam revealed stable vital signs, her O2 saturation remained stable, heart examination S1-S2 regular rate and rhythm, lungs are distant clear, abdomen is benign, no edema. Small hematoma at the right groin area. Neurologically she is intact. Somewhat forgetful. Current SOFA Score SOFA Score Response (Comments) Value PaO2/FiO2 (mmHg) < 400 1 SaO2 / FIO2 221 - 301 1 Platelets (x10) > 150 0 Bilirubin (mg/dL) < 1.2 0 Angelique Coma Score 15 0 Level of Hypotension No Hypotension 0 Creatinine (mg/dL) < 1.2 0 Total 2 Assessment & Plan #1 non-ST elevation NC status post LAD stent, doing better. #2 diabetes mellitus type 2. #3 active smoker. #4 borderline dementia. #5 right groin hematoma, stable. Plan: #1 was started the patient on oral intake. #2 we'll continue to monitor the right groin area. Appear to be stable without any complications. #3 on her labs. Reviewed personally and appeared reasonable. #4 I will defer the restart of her home medications including blood pressure medications to the cardiology service. #5 the patient can be transferred to a telemetry floor if it's okay with cardiology. The case discussed with the staff on rounds and details. Time spent with the patient was 35 minutes. Consults & Procedures Consultants: Cardiology Procedures: PCI Data Medications: Current Inpatient Medications Medications (Trade) Dose Ordered Sig/Natalia Route Start Time Stop Time Status Last Admin Dose Admin Lisinopril (Zestril Tab) 5 mg QAM PO 09/01/17 09:00 10/01/17 08:59 09/01/17 09:20 5 MG Calcium Carbonate (Tums Chew Tab) 500 mg UD PRN PO 09/01/17 00:30 10/01/17 00:29 Escitalopram Oxalate (Lexapro Tab) 10 mg DAILY PO 09/01/17 09:00 10/01/17 08:59 09/01/17 09:20 10 MG Lorazepam (Ativan Tab) 0.25 mg DAILY PRN PO 09/01/17 00:30 10/01/17 00:29 Donepezil HCl (Aricept Tab) 5 mg HS PO 09/01/17 21:00 10/01/17 20:59 Lorazepam (Ativan Tab) 1 mg ONE PRN PO 09/01/17 00:30 Heparin Sodium (Porcine) (Heparin Sq 5000 Unit/0.5ml) 5,000 unit Q12 SQ 09/01/17 09:00 10/01/17 08:59 09/01/17 09:28 5,000 UNIT Atorvastatin Calcium (Lipitor Tab) 80 mg QAM PO 09/02/17 09:00 10/02/17 08:59 Aspirin (Ecotrin Tab) 81 mg QAM PO 09/02/17 09:00 10/02/17 08:59 UNV Aspirin (Ecotrin Tab) 81 mg NOW STAT PO 09/01/17 10:01 09/01/17 10:02 UNV Clopidogrel Bisulfate (plAVix TAB) 75 mg QAM PO 09/02/17 09:00 10/02/17 08:59 UNV Clopidogrel Bisulfate (plAVix TAB) 75 mg NOW ONCE PO 09/01/17 10:15 09/01/17 10:16 UNV Metoprolol Succinate (Toprol Xl Tab) 25 mg QAM PO 09/02/17 09:00 10/02/17 08:59 UNV Metoprolol Succinate (Toprol Xl Tab) 25 mg NOW STAT PO 09/01/17 10:03 09/01/17 10:04 UNV Vital Signs: Date Time Temp Pulse Resp B/P (MAP) Pulse Ox O2 Delivery O2 Flow Rate FiO2 09/01/17 08:00 97 Nasal Cannula 2.0 09/01/17 08:00 36.8 76 17 125/77 (93) 97 Nasal Cannula 2.0 09/01/17 06:00 76 18 124/87 (99) 97 Nasal Cannula 2.0 09/01/17 04:00 98 Nasal Cannula 2.0 09/01/17 03:31 37.1 71 17 116/77 (90) 97 Nasal Cannula 2.0 09/01/17 02:30 70 10 111/71 (84) 96 Nasal Cannula 2.0 09/01/17 02:00 78 17 100/61 (74) 95 Nasal Cannula 2.0 09/01/17 01:30 74 21 109/71 (84) 95 Nasal Cannula 2.0 09/01/17 01:00 75 15 105/67 (80) 96 Nasal Cannula 2.0 09/01/17 00:45 74 15 106/68 (81) 95 Nasal Cannula 2.0 09/01/17 00:31 72 19 97/65 (76) 96 Nasal Cannula 2.0 09/01/17 00:01 36.7 72 14 106/74 (85) 94 Nasal Cannula 2.0 09/01/17 00:01 72 14 106/74 (85) 94 09/01/17 00:00 71 19 93 08/31/17 23:59 94 Nasal Cannula 2.0 08/31/17 23:45 70 16 110/74 (86) 97 Nasal Cannula 2.0 08/31/17 23:30 70 20 112/72 (85) 96 Nasal Cannula 2.0 08/31/17 23:15 73 17 113/68 (83) 97 Nasal Cannula 4.0 08/31/17 23:00 69 19 108/74 (85) 96 Nasal Cannula 4.0 08/31/17 22:31 77 13 98/62 (74) 97 Nasal Cannula 4.0 08/31/17 22:16 74 16 93/61 (72) 90 Nasal Cannula 4.0 08/31/17 22:01 36.4 73 18 105/50 (68) 92 Nasal Cannula 4.0 08/31/17 22:00 36.4 66 18 104/73 96 Nasal Cannula 4.0 08/31/17 21:40 70 18 102/68 (79) 94 Room Air 08/31/17 21:25 70 18 100/68 (79) 94 Room Air 08/31/17 20:41 76 08/31/17 20:40 81 22 134/92 95 08/31/17 20:32 84 24 101/85 96 Nasal Cannula 5.0 08/31/17 20:30 95 Nasal Cannula 5.0 08/31/17 20:30 36.4 75 24 124/90 95 Nasal Cannula 5.0 Laboratory Results: Last 24 Hours Test 08/31/17 20:22 08/31/17 20:23 08/31/17 20:26 08/31/17 20:58 White Blood Count 5.86 K/uL Red Blood Count 4.25 M/uL Hemoglobin 13.2 g/dL Hematocrit 37.8 % Mean Corpuscular Volume 88.9 fL Mean Corpuscular Hemoglobin 31.1 pg Mean Corpuscular Hemoglobin Concent 34.9 g/dl Platelet Count 250 K/uL Mean Platelet Volume 8.6 fL Neutrophils (%) (Auto) 56.1 % Lymphocytes (%) (Auto) 36.2 % Monocytes (%) (Auto) 6.5 % Eosinophils (%) (Auto) 0.7 % Basophils (%) (Auto) 0.3 % Neutrophils # (Auto) 3.29 K/uL Lymphocytes # (Auto) 2.12 K/uL Monocytes # (Auto) 0.38 K/uL Eosinophils # (Auto) 0.04 K/uL Basophils # (Auto) 0.02 K/uL RDW Standard Deviation 44.8 fL RDW Coefficient of Variation 13.8 % Immature Granulocyte % (Auto) 0.2 % Immature Granulocyte # (Auto) 0.01 K/uL Sodium Level 136 mmol/L Potassium Level 3.5 mmol/L Chloride Level 105 mmol/L Carbon Dioxide Level 24 mmol/L Anion Gap 8.0 mmol/L 18.0 mmol/L Blood Urea Nitrogen 6 mg/dl Creatinine 0.61 mg/dl Estimated GFR () 99.2 Estimated GFR (Non- 85.6 BUN/Creatinine Ratio 10.4 Random Glucose 112 mg/dl Calcium Level 8.6 mg/dl Total Creatine Kinase 33 U/L Creatine Kinase MB 1.5 ng/ml Creatine Kinase MB Ratio 4.5 Troponin I 0.107 ng/ml Triglycerides Level 285 mg/dl Cholesterol Level 230 mg/dl HDL Cholesterol 45 mg/dl LDL Cholesterol, Calculated 128 mg/dl VLDL Cholesterol, Calculated 57 mg/dl Cholesterol/HDL Ratio 5.1 Bedside Troponin I 0.070 ng/ml Bedside Hemoglobin 12.2 g/dl Bedside Hematocrit 36 % Bedside Sodium 137 mEq/L Bedside Potassium 3.6 mEq/L Bedside Chloride 101 mEq/L Bedside Total CO2 22 mEq/l Bedside Blood Urea Nitrogen 4 mg/dl Bedside Creatinine 0.6 mg/dl Bedside Glucose (other) 116 mg/dl Bedside Ionized Calcium (Mariana) 1.17 mmol/l Kaolin Activated Coagulation Time 164 SECONDS Test 08/31/17 21:17 08/31/17 21:27 08/31/17 23:27 09/01/17 05:02 Kaolin Activated Coagulation Time 191 SECONDS 230 SECONDS Bedside Glucose 123 mg/dl White Blood Count 7.92 K/uL Red Blood Count 3.75 M/uL Hemoglobin 11.5 g/dL Hematocrit 33.8 % Mean Corpuscular Volume 90.1 fL Mean Corpuscular Hemoglobin 30.7 pg Mean Corpuscular Hemoglobin Concent 34.0 g/dl Platelet Count 224 K/uL Mean Platelet Volume 8.5 fL Neutrophils (%) (Auto) 73.6 % Lymphocytes (%) (Auto) 18.1 % Monocytes (%) (Auto) 7.8 % Eosinophils (%) (Auto) 0.3 % Basophils (%) (Auto) 0.1 % Neutrophils # (Auto) 5.83 K/uL Lymphocytes # (Auto) 1.43 K/uL Monocytes # (Auto) 0.62 K/uL Eosinophils # (Auto) 0.02 K/uL Basophils # (Auto) 0.01 K/uL RDW Standard Deviation 46.2 fL RDW Coefficient of Variation 13.9 % Immature Granulocyte % (Auto) 0.1 % Immature Granulocyte # (Auto) 0.01 K/uL Prothrombin Time 10.4 SECONDS Prothromb Time International Ratio 1.0 Activated Partial Thromboplast Time 26.3 SECONDS Partial Thromboplastin Ratio 1.0 Sodium Level 133 mmol/L Potassium Level 4.9 mmol/L Chloride Level 104 mmol/L Carbon Dioxide Level 24 mmol/L Anion Gap 5.0 mmol/L Blood Urea Nitrogen 7 mg/dl Creatinine 0.61 mg/dl Est Creatinine Clear Calc Drug Dose 50.2 ml/min Estimated GFR () 99.2 Estimated GFR (Non- 85.6 BUN/Creatinine Ratio 12.1 Random Glucose 110 mg/dl Estimated Average Glucose 120 mg/dl Hemoglobin A1c 5.8 % Calcium Level 8.2 mg/dl Phosphorus Level 3.0 mg/dl Magnesium Level 1.9 mg/dl Total Bilirubin 0.3 mg/dl Direct Bilirubin < 0.1 mg/dl Aspartate Amino Transf (AST/SGOT) 454 U/L Alanine Aminotransferase (ALT/SGPT) 48 U/L Alkaline Phosphatase 47 U/L Troponin I > 200.000 ng/ml Total Protein 5.7 gm/dl Albumin 3.0 gm/dl Globulin 2.7 gm/dl Albumin/Globulin Ratio 1.1
[2017-09-01] MEDS ORDERED: CLOPIDOGREL BISULFATE 75 MG TAB PO ONE (10:15)
[2017-09-01] MEDS ORDERED: SPIRONOLACTONE 25 MG TAB PO ONE (11:15)
--- NOTE | 2017-09-01 11:57 | Family Medicine Progress Note ---
Progress Note Date of Service Sep 01, 2017. Subjective Pt evaluation today including: conversation w/ patient, conversation w/ family , physical exam, chart review, lab review, review of studies, conversation w/ [facility] consultant, review of inpatient medication list Pain: 0/10 Voiding: no voiding problems Patient developed a hematoma at the catheter site however it has been stable We did discuss this morning about tobacco cessation and with family around she states that she will "give it her best shot" and willing to talk to the tobacco cessation counsellor notes no chest pain or SOB with any exertion We did discuss the plan and expectations of the admission and the patient reflected understanding Constitutional: No fever Eyes: No worsening of vision ENT: No hearing loss Respiratory: No cough, No sputum, No wheezing, No shortness of breath, No dyspnea on exertion Cardiovascular: No chest pain Abdomen: No pain, No nausea, No vomiting, No diarrhea, No constipation Musculoskeletal: No joint pain, No muscle pain Neurologic: No weakness, No balance problems Psychiatric: No depression symptoms, No anxiety Heme: + abnormal bleeding/bruising Endo: No fatigue Skin: No rash Medications Medications Administered Medications (Trade) Dose Ordered Sig/Natalia Route Start Time Stop Time Status Last Admin Dose Admin Heparin Sodium/ Sodium Chloride (Heparin Sod/Ns 2 Units/Ml) 3,000 unit STK-MED ONCE .ROUTE 08/31/17 20:33 08/31/17 20:34 DC 08/31/17 20:33 3,000 UNIT Heparin Sodium (Porcine) (Heparin Iv Bolus) 10,000 unit STK-MED ONCE .ROUTE 08/31/17 20:34 08/31/17 20:35 DC 08/31/17 20:34 10,000 UNIT Midazolam HCl (Versed Inj) 2 mg STK-MED ONCE .ROUTE 08/31/17 20:34 08/31/17 20:35 DC 08/31/17 20:34 2 MG Fentanyl Citrate (Fentanyl Inj) 100 mcg STK-MED ONCE .ROUTE 08/31/17 20:34 08/31/17 20:35 DC 08/31/17 20:34 50 MCG Sodium Chloride 1,000 ml @ 999 mls/hr Q1H1M STAT IV 08/31/17 20:42 08/31/17 21:42 DC 08/31/17 20:42 999 MLS/HR Metoprolol Tartrate (Lopressor Iv) 5 mg STK-MED ONCE .ROUTE 08/31/17 21:09 08/31/17 21:10 DC 08/31/17 21:09 5 MG Clopidogrel Bisulfate (plAVix TAB) 600 mg STK-MED ONCE PO 08/31/17 21:38 08/31/17 21:39 DC 08/31/17 21:38 600 MG Sodium Chloride 1,000 ml @ 75 mls/hr [id number] IV 08/31/17 21:45 09/01/17 00:46 DC 08/31/17 21:45 75 MLS/HR Miscellaneous (Dc All Anticoagulants) 1 ea ONE ONCE N/A 08/31/17 21:45 08/31/17 21:47 DC 08/31/17 21:45 1 EA Influenza Virus Vaccine Quadrival (Flucelvax Quad Vaccine) 0.5 ml ONCE ONCE IM. 08/31/17 23:30 09/01/17 00:45 DC 09/01/17 09:24 0.5 ML Lisinopril (Zestril Tab) 5 mg QAM PO 09/01/17 09:00 10/01/17 08:59 09/01/17 09:20 5 MG Potassium Chloride (Klor-Con Pwd) 40 meq TODAY@0400 PO 09/01/17 04:00 09/01/17 04:01 DC 09/01/17 04:20 40 MEQ Escitalopram Oxalate (Lexapro Tab) 10 mg DAILY PO 09/01/17 09:00 10/01/17 08:59 09/01/17 09:20 10 MG Heparin Sodium (Porcine) (Heparin Sq 5000 Unit/0.5ml) 5,000 unit Q12 SQ 09/01/17 09:00 10/01/17 08:59 09/01/17 09:28 5,000 UNIT Atorvastatin Calcium (Lipitor Tab) 80 mg NOW ONCE PO 09/01/17 02:15 09/01/17 02:16 DC 09/01/17 04:19 80 MG Aspirin (Ecotrin Tab) 81 mg NOW STAT PO 09/01/17 10:01 09/01/17 10:11 DC 09/01/17 10:24 81 MG Clopidogrel Bisulfate (plAVix TAB) 75 mg NOW ONCE PO 09/01/17 10:15 09/01/17 10:16 DC 09/01/17 10:24 75 MG Metoprolol Succinate (Toprol Xl Tab) 25 mg NOW STAT PO 09/01/17 10:03 09/01/17 10:11 DC 09/01/17 10:24 25 MG Spironolactone (Aldactone Tab) 25 mg NOW ONCE PO 09/01/17 11:15 09/01/17 11:16 DC 09/01/17 11:34 25 MG Objective Vital Signs Date Time Temp Pulse Resp B/P (MAP) Pulse Ox O2 Delivery O2 Flow Rate FiO2 09/01/17 10:00 88 19 119/84 (96) 96 Nasal Cannula 2.0 09/01/17 08:00 97 Nasal Cannula 2.0 09/01/17 08:00 36.8 76 17 125/77 (93) 97 Nasal Cannula 2.0 09/01/17 06:00 76 18 124/87 (99) 97 Nasal Cannula 2.0 09/01/17 04:00 98 Nasal Cannula 2.0 09/01/17 03:31 37.1 71 17 116/77 (90) 97 Nasal Cannula 2.0 09/01/17 02:30 70 10 111/71 (84) 96 Nasal Cannula 2.0 09/01/17 02:00 78 17 100/61 (74) 95 Nasal Cannula 2.0 09/01/17 01:30 74 21 109/71 (84) 95 Nasal Cannula 2.0 09/01/17 01:00 75 15 105/67 (80) 96 Nasal Cannula 2.0 09/01/17 00:45 74 15 106/68 (81) 95 Nasal Cannula 2.0 09/01/17 00:31 72 19 97/65 (76) 96 Nasal Cannula 2.0 09/01/17 00:01 36.7 72 14 106/74 (85) 94 Nasal Cannula 2.0 09/01/17 00:01 72 14 106/74 (85) 94 09/01/17 00:00 71 19 93 08/31/17 23:59 94 Nasal Cannula 2.0 08/31/17 23:45 70 16 110/74 (86) 97 Nasal Cannula 2.0 08/31/17 23:30 70 20 112/72 (85) 96 Nasal Cannula 2.0 08/31/17 23:15 73 17 113/68 (83) 97 Nasal Cannula 4.0 08/31/17 23:00 69 19 108/74 (85) 96 Nasal Cannula 4.0 08/31/17 22:31 77 13 98/62 (74) 97 Nasal Cannula 4.0 08/31/17 22:16 74 16 93/61 (72) 90 Nasal Cannula 4.0 08/31/17 22:01 36.4 73 18 105/50 (68) 92 Nasal Cannula 4.0 08/31/17 22:00 36.4 66 18 104/73 96 Nasal Cannula 4.0 08/31/17 21:40 70 18 102/68 (79) 94 Room Air 08/31/17 21:25 70 18 100/68 (79) 94 Room Air 08/31/17 20:41 76 08/31/17 20:40 81 22 134/92 95 08/31/17 20:32 84 24 101/85 96 Nasal Cannula 5.0 08/31/17 20:30 95 Nasal Cannula 5.0 08/31/17 20:30 36.4 75 24 124/90 95 Nasal Cannula 5.0 Physical Exam General Appearance: no apparent distress, + thin Eyes: normal inspection ENT: normal ENT inspection Neck: supple Respiratory/Chest: normal breath sounds, no respiratory distress, no accessory muscle use, + decreased breath sounds (bilat bases with generally quiet breath sounds) Cardiovascular: regular rate, rhythm, no murmur Abdomen: normal bowel sounds, non tender, soft Extremities: non-tender, normal inspection, no pedal edema, no calf tenderness , + pertinent finding (right cath site hematoma, tender but no active bleeding noted) Neurologic/Psychiatric: alert, normal mood/affect, oriented x 3 Skin: normal color, warm/dry, no rash Lymphatic: no adenopathy Laboratory Results Results Past 24 Hours Test 08/31/17 20:22 08/31/17 20:23 08/31/17 20:26 08/31/17 20:58 Range/Units White Blood Count 5.86 4.8-10.8 K/uL Red Blood Count 4.25 4.2-5.4 M/uL Hemoglobin 13.2 12.0-16.0 g/dL Hematocrit 37.8 37-47 % Mean Corpuscular Volume 88.9 80-100 fL Mean Corpuscular Hemoglobin 31.1 25-34 pg Mean Corpuscular Hemoglobin Concent 34.9 32-36 g/dl Platelet Count 250 130-400 K/uL Mean Platelet Volume 8.6 7.4-10.4 fL Neutrophils (%) (Auto) 56.1 % Lymphocytes (%) (Auto) 36.2 % Monocytes (%) (Auto) 6.5 % Eosinophils (%) (Auto) 0.7 % Basophils (%) (Auto) 0.3 % Neutrophils # (Auto) 3.29 1.4-6.5 K/uL Lymphocytes # (Auto) 2.12 1.2-3.4 K/uL Monocytes # (Auto) 0.38 0.11-0.59 K/uL Eosinophils # (Auto) 0.04 0-0.5 K/uL Basophils # (Auto) 0.02 0-0.2 K/uL RDW Standard Deviation 44.8 36.4-46.3 fL RDW Coefficient of Variation 13.8 11.5-14.5 % Immature Granulocyte % (Auto) 0.2 % Immature Granulocyte # (Auto) 0.01 0.00-0.02 K/uL Sodium Level 136 136-145 mmol/L Potassium Level 3.5 3.5-5.1 mmol/L Chloride Level 105 98-107 mmol/L Carbon Dioxide Level 24 21-32 mmol/L Anion Gap 8.0 18.0 16-25 mmol/L Blood Urea Nitrogen 6 7-18 mg/dl Creatinine 0.61 0.60-1.20 mg/dl Estimated GFR () 99.2 Estimated GFR (Non- 85.6 BUN/Creatinine Ratio 10.4 10-20 Random Glucose 112 70-99 mg/dl Calcium Level 8.6 8.5-10.1 mg/dl Total Creatine Kinase 33 26-192 U/L Creatine Kinase MB 1.5 0.5-3.6 ng/ml Creatine Kinase MB Ratio 4.5 0-3.0 Troponin I 0.107 0-0.045 ng/ml Triglycerides Level 285 0-150 mg/dl Cholesterol Level 230 0-200 mg/dl HDL Cholesterol 45 mg/dl LDL Cholesterol, Calculated 128 mg/dl VLDL Cholesterol, Calculated 57 mg/dl Cholesterol/HDL Ratio 5.1 Bedside Troponin I 0.070 0-0.045 ng/ml Bedside Hemoglobin 12.2 12.0-16.0 g/dl Bedside Hematocrit 36 37-47 % Bedside Sodium 137 135-144 mEq/L Bedside Potassium 3.6 3.3-5.0 mEq/L Bedside Chloride 101 101-112 mEq/L Bedside Total CO2 22 24-31 mEq/l Bedside Blood Urea Nitrogen 4 7-18 mg/dl Bedside Creatinine 0.6 0.6-1.3 mg/dl Bedside Glucose (other) 116 70-99 mg/dl Bedside Ionized Calcium (Mariana) 1.17 1.12-1.32 mmol/l Kaolin Activated Coagulation Time 164 94-140 SECONDS Test 08/31/17 21:17 08/31/17 21:27 08/31/17 23:27 09/01/17 05:02 Range/Units Kaolin Activated Coagulation Time 191 230 94-140 SECONDS Bedside Glucose 123 70-90 mg/dl White Blood Count 7.92 4.8-10.8 K/uL Red Blood Count 3.75 4.2-5.4 M/uL Hemoglobin 11.5 12.0-16.0 g/dL Hematocrit 33.8 37-47 % Mean Corpuscular Volume 90.1 80-100 fL Mean Corpuscular Hemoglobin 30.7 25-34 pg Mean Corpuscular Hemoglobin Concent 34.0 32-36 g/dl Platelet Count 224 130-400 K/uL Mean Platelet Volume 8.5 7.4-10.4 fL Neutrophils (%) (Auto) 73.6 % Lymphocytes (%) (Auto) 18.1 % Monocytes (%) (Auto) 7.8 % Eosinophils (%) (Auto) 0.3 % Basophils (%) (Auto) 0.1 % Neutrophils # (Auto) 5.83 1.4-6.5 K/uL Lymphocytes # (Auto) 1.43 1.2-3.4 K/uL Monocytes # (Auto) 0.62 0.11-0.59 K/uL Eosinophils # (Auto) 0.02 0-0.5 K/uL Basophils # (Auto) 0.01 0-0.2 K/uL RDW Standard Deviation 46.2 36.4-46.3 fL RDW Coefficient of Variation 13.9 11.5-14.5 % Immature Granulocyte % (Auto) 0.1 % Immature Granulocyte # (Auto) 0.01 0.00-0.02 K/uL Prothrombin Time 10.4 9.0-12.0 SECONDS Prothromb Time International Ratio 1.0 0.9-1.1 Activated Partial Thromboplast Time 26.3 21.0-31.0 SECONDS Partial Thromboplastin Ratio 1.0 Sodium Level 133 136-145 mmol/L Potassium Level 4.9 3.5-5.1 mmol/L Chloride Level 104 98-107 mmol/L Carbon Dioxide Level 24 21-32 mmol/L Anion Gap 5.0 3-11 mmol/L Blood Urea Nitrogen 7 7-18 mg/dl Creatinine 0.61 0.60-1.20 mg/dl Est Creatinine Clear Calc Drug Dose 50.2 ml/min Estimated GFR () 99.2 Estimated GFR (Non- 85.6 BUN/Creatinine Ratio 12.1 10-20 Random Glucose 110 70-99 mg/dl Estimated Average Glucose 120 mg/dl Hemoglobin A1c 5.8 4.5-5.6 % Calcium Level 8.2 8.5-10.1 mg/dl Phosphorus Level 3.0 2.5-4.9 mg/dl Magnesium Level 1.9 1.8-2.4 mg/dl Total Bilirubin 0.3 0.2-1 mg/dl Direct Bilirubin < 0.1 0-0.2 mg/dl Aspartate Amino Transf (AST/SGOT) 454 15-37 U/L Alanine Aminotransferase (ALT/SGPT) 48 12-78 U/L Alkaline Phosphatase 47 45-117 U/L Troponin I > 200.000 0-0.045 ng/ml Total Protein 5.7 6.4-8.2 gm/dl Albumin 3.0 3.4-5.0 gm/dl Globulin 2.7 2.5-4.0 gm/dl Albumin/Globulin Ratio 1.1 0.9-2 Microbiology Results 08/31/17 MRSA DNA Surveillance Screen - Final, Complete Specimen Negative for MRSA by DNA Probe Assessment and Plan This is an 82 yo f that presented to us with chest pain which started [employer] and on evaluation in the ED she was found to have a STEMI. A heart alert was called and patient was brought to the laborer heading for catheterization. The patient had a 100% occluded LAD and a bare metal stent was deployed with successful revascularization with some AIVR runs which resolved with 5 mg of IV metoprolol. STEMI s/p stent placement - plan for ICU stay overnight as patient has had a very severe STEMI resulting in a compromised EF, plan for step down to MICU tomorrow - the plan was discussed with the corporate account executive and agree with recs - continue ASA 81 mg and Plavix 75 mg - Atorvastatin was increased from 20 to 80 mg daily - continue Lisinopril 5 mg and Metoprolol 25 mg in am - Addition of spironolactone 25 mg - the Amlodipine was held, will reassess if this needs to be continued based on bp control throughout stay - plan for [facility] on d/c Hyponatremia - will check BMP in am DMII - HBA1C- 5.8 % - patient is currently not on any medications so most likely diet controlled - will follow [facility] ACHS and add sliding scale if needed Tobacco abuse Reportedly smokes 1-1/2 packs per day Tobacco counseling- now agreeable Depression/dementia-- Continue Lexapro 10 mg by mouth daily and donepezil 5 mg by mouth at bedtime - patient is currently oriented x 3 DVt prophylaxis - heparin bid Continued [facility] stay due to: other (s/p STEMI) Discharge planning: uncertain Reviewed: Pt Seen/Exam by Me History no further chest pain, shortness of breath Constitutional: denies: fever Cardiovascular: denies palpitations Gastrointestinal/Abdominal: negative: abdominal pain General Appearance: no apparent distress Respiratory: lungs clear, no respiratory distress Cardiovascular: regular rate, rhythm Gastrointestinal: normal bowel sounds, non tender, soft Neurologic/Psychiatric: alert, oriented x 3 Skin Characteristics: warm/dry Assessment/Plan Resident Physician Supervision Note: I independently interviewed and examined the patient and verified the juarez history and physical, reviewed labs and image studies, discussed the case with the resident Dr. Banuelos and agree with the findings and care plan.
--- NOTE | 2017-09-01 12:15 | CARDIOLOGY PROGRESS NOTE ---
DATE: 09/01/2017 TIME: 10:52 a.m. SUBJECTIVE: Ms. Phan is a pleasant 82-year-old female with dyslipidemia, hypertension, and COPD, who was hospitalized for ST elevation myocardial infarction. Presenting ECG demonstrated sinus rhythm with anterior ST elevations. She was taken to the cardiac catheterization lab by Dr. Velásquez, inspector scales spare person. She underwent proximal LAD PCI with a bare-metal stent 2.5 x 12 mm Integrity bare-metal stent. She was then noted by nursing staff to have a small right groin hematoma that has been stable in size throughout the morning. She stated that her angina consisted of a crushing chest pain with associated shortness of breath. There was no diaphoresis. It occurred suddenly while she was standing at the sink. She did not have syncope, but did fall to the ground. Her immediately called 911. She apparently developed hypotension following nitroglycerin administration. In the cardiac catheterization lab, she underwent PCI and her chest discomfort resolved at that time. She has not had any recurrent angina. She denies shortness of breath, syncope, near syncope, palpitations or edema. She denies melena, hematochezia, hematuria, or any other bleeding prehospital or following PCI. She admits that she smokes 10 or more cigarettes per day since the age of 14. She also consumes at least 4 beers each night. OBJECTIVE: VITAL SIGNS: Temperature 36.8 degrees, heart rate 88 beats per minute, respiratory rate 19, blood pressure 119/84 mmHg, and oxygen saturation 96% on 2 liters per nasal cannula. Weight is 51.1 kg. GENERAL: No acute distress. She is alert. NECK: No JVD and no bruits. CARDIAC EXAM: No ventricular heave. Regular, normal S1 and S2. There were no audible murmurs, rubs or gallops. LUNGS: Decreased breath sounds throughout, but otherwise clear. ABDOMEN: Soft, nontender, and nondistended. Normoactive bowel sounds. EXTREMITIES: There is a small hematoma in the right groin, which is mildly tender. No significant ecchymosis. No audible right femoral bruit. 2+ dorsalis pedis pulses bilaterally. No cyanosis or edema. PSYCHIATRIC: Affect appears appropriate. MEDICATIONS: Include atorvastatin 80 mg daily, Plavix load 600 mg at 21:38 p.m., Lexapro 10 mg daily, heparin 5000 units subQ q. 12 hours, lisinopril 5 mg daily, and p.r.n. Ativan for alcohol withdrawals and symptoms. TELEMETRY: Personally reviewed. She had idioventricular rhythm overnight at approximately 22:34 p.m. She has not had any ventricular tachycardia. She is in sinus rhythm, otherwise. Presenting ECG personally reviewed as noted above. Repeat ECG on 08/31/2017 at 21:59 demonstrated sinus rhythm at 69 beats per minute. Improvement of anterior ST elevations. There are Q-waves in the anterior leads. Repeat ECG on 09/01/2017 at 08:30 a.m. demonstrates sinus rhythm at 77 beats per minute, anterior CT. Echocardiogram images personally reviewed. Preliminary review demonstrated hyperdynamic basal segments of the left ventricle. Otherwise, there is a large LAD territory infarct. EF is approximately 35%. Full report to follow after formal review. Coronary angiography images were personally reviewed. The cath report from Dr. Velásquez is currently pending. Just beyond the large septal copyist, the LAD was 100% occluded. Circumflex and large ramus without significant CAD. The RCA had diffuse mild nonobstructive CAD of approximately 30% throughout the mid section. Distal RCA 50%-60% stenosis. PL and PDA without significant CAD. The LAD underwent a bare-metal stent with a 2.5 x 12 mm Integrity bare-metal stent. Just beyond the stent near the bifurcation of the first diagonal vessel, there was approximately 40% CAD. The LAD was wrapped around the LAD. LABORATORY DATA: Sodium 133, potassium 4.9, BUN 7, and creatinine 0.61. Troponin greater than 200. Initial troponin was 0.107. Albumin 3. Magnesium 1.9. AST 454 and ALT 48. A1c 5.8. White blood cell count 7.92, hemoglobin 11.5, and platelets 224. ASSESSMENT AND PLAN: 1. Large anterior/LAD ST-elevation myocardial infarction: Underwent a bare-metal stent PCI with 2.5 x 12-mm Integrity stent. No further angina. She does have significantly reduced LV systolic dysfunction. We will start aspirin 81 mg daily with Plavix 75 mg daily. Continue high intensity statin therapy. Cardiac rehabilitation is recommended. We will initiate beta da. Agree with SEKOU inhibitor. We will also initiate spironolactone 25 mg daily. Monitor closely for arrhythmia. 2. Ischemic cardiomyopathy: Hopefully, there will be some recovery of function; however, she did have significant elevation in her troponin level. Initiating metoprolol succinate 25 mg daily. Continue SEKOU inhibitor. Initiating spironolactone as noted above. She appears euvolemic and denies heart failure symptoms. 3. Coronary artery disease: As above. Continue medical therapy as noted. 4. Hypertension: Amlodipine was discontinued by primary service and this has been replaced with lisinopril and now with the addition of metoprolol succinate. Blood pressure well controlled. 5. Idioventricular rhythm: Likely due to her myocardial infarction and reperfusion. Continue telemetry. 6. Dyslipidemia: Agree with high intensity statin therapy. 7. Tobacco abuse: Recommended that she stop smoking. She does not appear to be interested at this time. 8. Alcohol abuse: Monitor for alcohol withdrawal symptoms. It was recommended that she stop consuming alcohol. 9. Disposition: Would recommend ICU care for today and if no complication, PCU tomorrow. Cardiac rehabilitation recommended upon discharge. The patient's care and plan of care have been discussed with the primary hospitalist service, Dr. Banuelos and also the ICU critical care team with Dr. Mulligan. Cardiology will continue to follow.
--- NOTE | 2017-09-01 13:10 | ECHOCARDIOGRAM REPORT ---
*NOTICE TO RECEIVING REPUBLICAN AGENCY This information is strictly Confidential and protected under [place] law. [place] law prohibits you from making any further disclosure of this information unless further disclosure is expressly permitted by the written consent of the person to whom it pertains or is authorized by law. A general authorization for the release of medical or other information is not sufficient for this purpose. Hospital accepts no responsibility if the information is made available to any other person, INCLUDING THE PATIENT. Interpretation Summary * Name: ARCHANA SANTIAGO Study Date: 09/01/2017 06:45 AM BP: 116/77 mmHg * Patient Location: [facility] HR: 71 * : 1935 (M/d/yyyy) Gender: Female Height: 59 in * Age: 82 yrs Ethnicity: [place] Weight: 112 lb * Ordering Physician: Jluis Velásquez * Referring Physician: Self, Referred * Performed By: Mk Cabral RDCS * * Reason For Study: AMI * BSA: 1.4 m2 * -- Conclusions -- * 1. Normal left ventricular size with moderately reduced systolic function. EF 35-40%. Large LAD wall motion abnormality (akinesis of the mid to distal septum, mid anteroseptum, mid inferolateral, distal anterior, distal lateral, and apical wall segments; hypokinesis of the mid anterior and mid lateral wall segments). Moderate asymmetric hypertrophy of the basal septum. Type 1 diastolic dysfunction. * 2. The left atrium is mildly dilated. * 3. Aortic valve sclerosis mild, without significant aortic valvular stenosis. * 4. There is mild mitral regurgitation. * 5. Normal estimated right ventricular systolic pressure; 31 mmHg. * 6. No prior study available for comparison. Procedure Details * A complete two-dimensional transthoracic echocardiogram was performed (2D, M-mode, Doppler and color flow Doppler). * The study was technically adequate. Left Ventricle * Normal left ventricular size with moderately reduced systolic function. EF 35-40%. Large LAD wall motion abnormality (akinesis of the mid to distal septum, mid anteroseptum, mid inferolateral, distal anterior, distal lateral, and apical wall segments; hypokinesis of the mid anterior and mid lateral wall segments). Moderate asymmetric hypertrophy of the basal septum. Type 1 diastolic dysfunction. Right Ventricle * The right ventricle is normal in size and function. * The right ventricular systolic function is normal as assessed by tricuspid annular plane systolic excursion (TAPSE) (normal >1.5 cm). Atria * The left atrium is mildly dilated. * Right atrial size is normal. * There is no evidence of atrial septal defect, but resolution does not allow assessment for a patent foramen ovale. Mitral Valve * There is mild mitral annular calcification. * There is no mitral valve stenosis. * There is mild mitral regurgitation. Tricuspid Valve * The tricuspid valve is not well visualized, but is grossly normal. * There is no tricuspid stenosis. * There is trace tricuspid regurgitation. Aortic Valve * Aortic valve sclerosis mild, without significant aortic valvular stenosis. * No hemodynamically significant valvular aortic stenosis. * Trace aortic regurgitation. Pulmonic Valve * The pulmonary valve is inadequately visualized, but the Doppler data is adequate for interpretation. * There is no pulmonic valvular stenosis. * There is no significant pulmonary regurgitation. Great Vessels * The aortic root is normal size. Pericardium/Pleural * Trace pericardial effusion. Great Vessels * Normal IVC size with mildly reduced inspiratory collapse. MMode 2D Measurements and Calculations IVSd 1.3 cm IVSs 1.9 cm LVIDd 4.0 cm LVPWd 0.90 cm LVPWs 1.3 cm IVS/LVPW 1.4 EDV(Teich) 71.4 ml EDV(cubed) 65.6 ml % IVS thick 50.9 % % LVPW thick 46.5 % LV mass(C)d 145.8 grams LV mass(C)dI 101.1 grams/m\S\2 EPSS 0.88 cm Ao root diam 2.9 cm Ao root area 6.5 cm\S\2 ACS 1.1 cm LA dimension 3.5 cm asc Aorta Diam 3.2 cm LA/Ao 1.2 LVOT diam 2.0 cm LVOT area 3.1 cm\S\2 LVAd ap4 24.1 cm\S\2 LVLd ap4 7.5 cm EDV(MOD-sp4) 63.4 ml EDV(sp4-el) 66.2 ml LVAs ap4 18.6 cm\S\2 LVLs ap4 7.4 cm ESV(MOD-sp4) 38.6 ml ESV(sp4-el) 39.5 ml EF(MOD-sp4) 39.1 % EF(sp4-el) 40.3 % LVAd ap2 21.1 cm\S\2 LVLd ap2 7.5 cm EDV(MOD-sp2) 49.7 ml EDV(sp2-el) 50.7 ml LVAs ap2 17.0 cm\S\2 LVLs ap2 7.4 cm ESV(MOD-sp2) 32.7 ml ESV(sp2-el) 33.4 ml EF(MOD-sp2) 34.2 % EF(sp2-el) 34.1 % LVLd %diff -1.13 % EDV(MOD-bp) 56.9 ml LVLs %diff 2.4 % ESV(MOD-bp) 34.6 ml EF(MOD-bp) 39.2 % SV(MOD-sp4) 24.8 ml SI(MOD-sp4) 17.2 ml/m\S\2 SV(MOD-sp2) 17.0 ml SI(MOD-sp2) 11.8 ml/m\S\2 SV(MOD-bp) 22.3 ml SI(MOD-bp) 15.5 ml/m\S\2 SV(sp4-el) 26.7 ml SI(sp4-el) 18.5 ml/m\S\2 SV(sp2-el) 17.3 ml SI(sp2-el) 12.0 ml/m\S\2 Doppler Measurements and Calculations MV E max jeanie 63.6 cm/sec MV A max jeanie 77.1 cm/sec MV E/A 0.83 MV dec time 0.13 sec Ao V2 max 168.2 cm/sec Ao max PG 11.3 mmHg Ao max PG (full) 7.3 mmHg Ao V2 mean 108.2 cm/sec Ao mean PG 5.5 mmHg Ao mean PG (full) 3.2 mmHg Ao V2 VTI 35.1 cm GIOVANI(I,A) 2.0 cm\S\2 GIOVANI(I,D) 2.0 cm\S\2 GIOVANI(V,A) 1.9 cm\S\2 GIOVANI(V,D) 1.9 cm\S\2 AI max jeanie 434.0 cm/sec AI max PG 75.3 mmHg AI dec slope 315.3 cm/sec\S\2 AI P1/2t 403.2 msec LV V1 max PG 4.0 mmHg LV V1 mean PG 2.4 mmHg LV V1 max 100.4 cm/sec LV V1 mean 71.7 cm/sec LV V1 VTI 22.6 cm SV(Ao) 226.7 ml SI(Ao) 157.3 ml/m\S\2 SV(LVOT) 70.9 ml SI(LVOT) 49.2 ml/m\S\2 PA V2 max 53.0 cm/sec PA max PG 1.1 mmHg PA acc slope 580.5 cm/sec\S\2 PA acc time 0.11 sec TR max jeanie 247.8 cm/sec RVSP(TR) 32.6 mmHg RAP systole 8.0 mmHg PA pr(Accel) 31.1 mmHg
[2017-09-01] MEDS: DONEPEZIL HCL 5 MG TAB PO SCH (20:40)
[2017-09-02] VITALS (15 sets, daily range): BP systolic 84–115; BP diastolic 54–69; PULSE 59–84; TEMP 36.6–37.2; O2SAT 92–97
[2017-09-02 05:12] LABS: BASO % 0.2 %; BASO ABS # 0.01 K/uL (0-0.2); EOS % 0.8 %; EOS ABS # 0.05 K/uL (0-0.5); HEMATOCRIT 30.1 % (37-47); HEMOGLOBIN 10.3 g/dL (12.0-16.0); IG# 0.02 K/uL (0.00-0.02); LYMPH % 28.5 %; LYMPH ABS # 1.71 K/uL (1.2-3.4); MEAN CELL VOLUME 89.3 fL (80-100); MEAN CORPUSCULAR HEMOGLOBIN 30.6 pg (25-34); MEAN CORPUSCULAR HGB CONC 34.2 g/dl (32-36); MEAN PLATELET VOLUME 8.5 fL (7.4-10.4); MONO % 9.2 %; MONO ABS # 0.55 K/uL (0.11-0.59); NEUT ABS # 3.66 K/uL (1.4-6.5); PLATELET COUNT 185 K/uL (130-400); RED CELL DISTRIBUTION WIDTH CV 13.7 % (11.5-14.5); RED CELL DISTRIBUTION WIDTH SD 45.1 fL (36.4-46.3)
[2017-09-02 05:48] LABS: CREATININE 0.55 mg/dl (0.60-1.20)
[2017-09-02] MEDS: HEPARIN SOD 5000 UNIT/0.5 ML CARP SQ SCH ×2 (07:50→20:24)
[2017-09-02] MEDS: ASPIRIN 81 MG ECTAB PO SCH (07:51)
[2017-09-02] MEDS: CLOPIDOGREL BISULFATE 75 MG TAB PO SCH (07:52)
[2017-09-02] MEDS: METOPROLOL SUCC 25MG EXT REL TAB PO SCH (07:52)
[2017-09-02] MEDS: ATORVASTATIN 40 MG TAB PO SCH (07:52)
[2017-09-02] MEDS: ESCITALOPRAM OXALATE 10 MG TAB PO SCH (07:52)
[2017-09-02] MEDS: SPIRONOLACTONE 25 MG TAB PO SCH (07:53)
[2017-09-02] MEDS: LISINOPRIL 5 MG TAB PO SCH (07:53)
--- NOTE | 2017-09-02 09:19 | Family Medicine Progress Note ---
Progress Note Date of Service Sep 02, 2017. Subjective Pt evaluation today including: conversation w/ patient, physical exam, chart review, lab review, review of studies, conversation w/ senior sustainability consultant, review of inpatient medication list Pain: 0/10 Voiding: no voiding problems Patient states she feels well, no chest pain, no SOB She continues to remain oriented x 3 Constitutional: No fever Eyes: No worsening of vision ENT: No hearing loss Respiratory: No cough, No sputum, No wheezing, No shortness of breath, No dyspnea on exertion Cardiovascular: No chest pain Abdomen: No pain, No nausea, No vomiting, No diarrhea, No constipation Musculoskeletal: No joint pain, No muscle pain Female : No dysuria Neurologic: No memory loss, No weakness, No balance problems Psychiatric: No depression symptoms Endo: + fatigue Skin: + problem reported (hematoma continues to hurt however not worsening) , No rash Medications Medications Administered Medications (Trade) Dose Ordered Sig/Natalia Route Start Time Stop Time Status Last Admin Dose Admin Heparin Sodium/ Sodium Chloride (Heparin Sod/Ns 2 Units/Ml) 3,000 unit STK-MED ONCE .ROUTE 08/31/17 20:33 08/31/17 20:34 DC 08/31/17 20:33 3,000 UNIT Heparin Sodium (Porcine) (Heparin Iv Bolus) 10,000 unit STK-MED ONCE .ROUTE 08/31/17 20:34 08/31/17 20:35 DC 08/31/17 20:34 10,000 UNIT Midazolam HCl (Versed Inj) 2 mg STK-MED ONCE .ROUTE 08/31/17 20:34 08/31/17 20:35 DC 08/31/17 20:34 2 MG Fentanyl Citrate (Fentanyl Inj) 100 mcg STK-MED ONCE .ROUTE 08/31/17 20:34 08/31/17 20:35 DC 08/31/17 20:34 50 MCG Sodium Chloride 1,000 ml @ 999 mls/hr Q1H1M STAT IV 08/31/17 20:42 08/31/17 21:42 DC 08/31/17 20:42 999 MLS/HR Metoprolol Tartrate (Lopressor Iv) 5 mg STK-MED ONCE .ROUTE 08/31/17 21:09 08/31/17 21:10 DC 08/31/17 21:09 5 MG Clopidogrel Bisulfate (plAVix TAB) 600 mg STK-MED ONCE PO 08/31/17 21:38 08/31/17 21:39 DC 08/31/17 21:38 600 MG Sodium Chloride 1,000 ml @ 75 mls/hr [id number] IV 08/31/17 21:45 09/01/17 00:46 DC 08/31/17 21:45 75 MLS/HR Miscellaneous (Dc All Anticoagulants) 1 ea ONE ONCE N/A 08/31/17 21:45 08/31/17 21:47 DC 08/31/17 21:45 1 EA Influenza Virus Vaccine Quadrival (Flucelvax Quad Vaccine) 0.5 ml ONCE ONCE IM. 08/31/17 23:30 09/01/17 00:45 DC 09/01/17 09:24 0.5 ML Lisinopril (Zestril Tab) 5 mg QAM PO 09/01/17 09:00 10/01/17 08:59 09/02/17 07:53 5 MG Potassium Chloride (Klor-Con Pwd) 40 meq TODAY@0400 PO 09/01/17 04:00 09/01/17 04:01 DC 09/01/17 04:20 40 MEQ Escitalopram Oxalate (Lexapro Tab) 10 mg DAILY PO 09/01/17 09:00 10/01/17 08:59 09/02/17 07:52 10 MG Donepezil HCl (Aricept Tab) 5 mg HS PO 09/01/17 21:00 10/01/17 20:59 09/01/17 20:40 5 MG Heparin Sodium (Porcine) (Heparin Sq 5000 Unit/0.5ml) 5,000 unit Q12 SQ 09/01/17 09:00 10/01/17 08:59 09/02/17 07:50 5,000 UNIT Atorvastatin Calcium (Lipitor Tab) 80 mg NOW ONCE PO 09/01/17 02:15 09/01/17 02:16 DC 09/01/17 04:19 80 MG Atorvastatin Calcium (Lipitor Tab) 80 mg QAM PO 09/02/17 09:00 10/02/17 08:59 09/02/17 07:52 80 MG Aspirin (Ecotrin Tab) 81 mg QAM PO 09/02/17 09:00 10/02/17 08:59 09/02/17 07:51 81 MG Aspirin (Ecotrin Tab) 81 mg NOW STAT PO 09/01/17 10:01 09/01/17 10:11 DC 09/01/17 10:24 81 MG Clopidogrel Bisulfate (plAVix TAB) 75 mg QAM PO 09/02/17 09:00 10/02/17 08:59 09/02/17 07:52 75 MG Clopidogrel Bisulfate (plAVix TAB) 75 mg NOW ONCE PO 09/01/17 10:15 09/01/17 10:16 DC 09/01/17 10:24 75 MG Metoprolol Succinate (Toprol Xl Tab) 25 mg QAM PO 09/02/17 09:00 10/02/17 08:59 09/02/17 07:52 25 MG Metoprolol Succinate (Toprol Xl Tab) 25 mg NOW STAT PO 09/01/17 10:03 09/01/17 10:11 DC 09/01/17 10:24 25 MG Spironolactone (Aldactone Tab) 25 mg QAM PO 09/02/17 09:00 10/02/17 08:59 09/02/17 07:53 25 MG Spironolactone (Aldactone Tab) 25 mg NOW ONCE PO 09/01/17 11:15 09/01/17 11:16 DC 09/01/17 11:34 25 MG Objective Vital Signs Date Time Temp Pulse Resp B/P (MAP) Pulse Ox O2 Delivery O2 Flow Rate FiO2 09/02/17 08:00 94 Room Air 09/02/17 07:00 37.0 62 14 102/57 (72) 94 Nasal Cannula 2.0 09/02/17 06:01 59 10 86/54 (65) 96 Nasal Cannula 2.0 09/02/17 05:01 65 12 85/54 (64) 96 Nasal Cannula 2.0 09/02/17 04:59 64 20 97/61 (73) 92 Nasal Cannula 2.0 09/02/17 04:32 37.0 68 21 84/57 (66) 97 Nasal Cannula 2.0 09/02/17 04:23 97 Nasal Cannula 2.0 09/02/17 01:01 72 16 114/66 (82) 97 Nasal Cannula 2.0 09/02/17 00:22 97 Nasal Cannula 2.0 09/02/17 00:01 73 20 115/64 (81) 97 Nasal Cannula 2.0 09/01/17 23:01 72 21 96/71 (79) 85 Nasal Cannula 2.0 09/01/17 22:01 37.0 69 11 96/67 (77) 96 Nasal Cannula 2.0 09/01/17 21:32 72 8 114/69 (84) 98 Nasal Cannula 2.0 09/01/17 21:01 69 18 110/64 (79) 94 Nasal Cannula 2.0 09/01/17 20:29 97 Nasal Cannula 2.0 09/01/17 20:01 69 17 105/65 (78) 97 Nasal Cannula 2.0 09/01/17 19:49 37.0 73 20 98/64 (75) 93 Nasal Cannula 2.0 09/01/17 19:01 67 16 98/64 (75) 91 Nasal Cannula 2.0 09/01/17 18:00 82 24 09/01/17 17:45 70 16 95 09/01/17 17:30 73 21 97 09/01/17 17:15 66 19 97 09/01/17 17:01 76 19 116/70 (85) 94 09/01/17 17:00 78 21 95 17 16:45 84 15 94 09/01/17 16:30 36.8 74 24 93 09/01/17 16:30 74 24 93 09/01/17 16:15 73 17 95 17 16:01 71 17 103/68 (80) 09/01/17 16:00 72 21 93 17 16:00 95 Nasal Cannula 2.0 09/01/17 15:45 71 19 94 17 15:30 73 18 90 17 15:15 73 15 91 17 15:00 71 20 92 09/01/17 14:00 70 19 101/65 (77) 93 Room Air 09/01/17 12:00 36.6 66 15 96/64 (75) 95 Room Air 09/01/17 12:00 95 Room Air 09/01/17 10:00 88 19 119/84 (96) 96 Nasal Cannula 2.0 Physical Exam General Appearance: no apparent distress Eyes: normal inspection ENT: normal ENT inspection Neck: supple Respiratory/Chest: normal breath sounds, no respiratory distress, no accessory muscle use Cardiovascular: regular rate, rhythm, no murmur Abdomen: normal bowel sounds, non tender, soft Extremities: non-tender, normal inspection, no pedal edema, no calf tenderness Neurologic/Psychiatric: no motor/sensory deficits, alert, normal mood/affect, oriented x 3 Skin: normal color, warm/dry, no rash, + pertinent finding (hematoma remains within the marked area) Lymphatic: no adenopathy Laboratory Results Results Past 24 Hours Test 09/01/17 15:31 09/01/17 16:00 09/02/17 05:01 Range/Units Troponin I 86.100 0-0.045 ng/ml Urine Color YELLOW Urine Appearance CLEAR CLEAR Urine pH 5.0 4.5-7.5 Urine Specific [place] 1.020 1.000-1.030 Urine Protein NEG NEG Urine Glucose (UA) NEG NEG Urine Ketones NEG NEG Urine Occult Blood NEG NEG Urine Nitrite NEG NEG Urine Bilirubin NEG NEG Urine Urobilinogen NEG NEG Urine Leukocyte Esterase SMALL NEG Urine WBC (Auto) 5-10 0-5 /hpf Urine RBC (Auto) 0-4 0-4 /hpf Urine Hyaline Casts (Auto) 1-5 0-5 /lpf Urine Epithelial Cells (Auto) 10-20 0-5 /lpf Urine Bacteria (Auto) NEG NEG White Blood Count 6.00 4.8-10.8 K/uL Red Blood Count 3.37 4.2-5.4 M/uL Hemoglobin 10.3 12.0-16.0 g/dL Hematocrit 30.1 37-47 % Mean Corpuscular Volume 89.3 80-100 fL Mean Corpuscular Hemoglobin 30.6 25-34 pg Mean Corpuscular Hemoglobin Concent 34.2 32-36 g/dl Platelet Count 185 130-400 K/uL Mean Platelet Volume 8.5 7.4-10.4 fL Neutrophils (%) (Auto) 61.0 % Lymphocytes (%) (Auto) 28.5 % Monocytes (%) (Auto) 9.2 % Eosinophils (%) (Auto) 0.8 % Basophils (%) (Auto) 0.2 % Neutrophils # (Auto) 3.66 1.4-6.5 K/uL Lymphocytes # (Auto) 1.71 1.2-3.4 K/uL Monocytes # (Auto) 0.55 0.11-0.59 K/uL Eosinophils # (Auto) 0.05 0-0.5 K/uL Basophils # (Auto) 0.01 0-0.2 K/uL RDW Standard Deviation 45.1 36.4-46.3 fL RDW Coefficient of Variation 13.7 11.5-14.5 % Immature Granulocyte % (Auto) 0.3 % Immature Granulocyte # (Auto) 0.02 0.00-0.02 K/uL Sodium Level 129 136-145 mmol/L Potassium Level 4.0 3.5-5.1 mmol/L Chloride Level 99 98-107 mmol/L Carbon Dioxide Level 26 21-32 mmol/L Anion Gap 4.0 3-11 mmol/L Blood Urea Nitrogen 8 7-18 mg/dl Creatinine 0.55 0.60-1.20 mg/dl Est Creatinine Clear Calc Drug Dose 55.7 ml/min Estimated GFR () 102.7 Estimated GFR (Non- 88.6 BUN/Creatinine Ratio 14.9 10-20 Random Glucose 99 70-99 mg/dl Calcium Level 8.0 8.5-10.1 mg/dl Assessment and Plan This is an 82 yo f that presented to us with chest pain which started [employer] and on evaluation in the ED she was found to have a STEMI. A heart alert was called and patient was [facility]. The patient had a 100% occluded LAD and a bare metal stent was deployed with successful revascularization with some AIVR runs which resolved with 5 mg of IV metoprolol. Echo revealed that the patient had significant damage to her heart resulting in an EF of approx 35% and akinesis. STEMI s/p stent placement - step down to tele - the plan was discussed with the hydrate control tender and agree with recs - continue ASA 81 mg and Plavix 75 mg - Atorvastatin was increased from 20 to 80 mg daily - continue Lisinopril 5 mg and Metoprolol 25 mg in am - Addition of spironolactone 25 mg - the Amlodipine was held, will reassess if this needs to be continued based on bp control throughout stay - plan for [facility] on d/c Hyponatremia - will check BMP in am - considering EF will fluid restrict to 1500cc DMII - HBA1C- 5.8 % - patient is currently not on any medications so most likely diet controlled - will follow [facility] ACHS and add sliding scale if needed Tobacco abuse Reportedly smokes 1-1/2 packs per day Tobacco counseling- now agreeable Depression/dementia-- Continue Lexapro 10 mg by mouth daily and donepezil 5 mg by mouth at bedtime - patient is currently oriented x 3 DVt prophylaxis - heparin bid full code Continued [facility] stay due to: other (s/p STEMI, monitor x 24h ) Discharge planning: uncertain, other (d/c tomorrrow anticipated) Reviewed: Pt Seen/Exam by Me History denies any concerns Constitutional: denies: fever Respiratory: negative: short of breath Cardiovascular: denies chest pain General Appearance: no apparent distress Respiratory: lungs clear, no respiratory distress Cardiovascular: regular rate, rhythm Gastrointestinal: soft Neurologic/Psychiatric: alert, oriented x 3 Skin Characteristics: warm/dry, other (left groin hematoma improving) Assessment/Plan Resident Physician Supervision Note: I independently interviewed and examined the patient and verified the juarez history and physical, reviewed labs and image studies, discussed the case with the resident Dr. Banuelos and agree with the findings and care plan.
--- NOTE | 2017-09-02 09:41 | CARDIOLOGY PROGRESS NOTE ---
DATE: 09/02/2017 TIME: 09:05 a.m. SUBJECTIVE: She denies chest pain, shortness of breath, syncope, near syncope, palpitations, orthopnea or edema. She was asking when she can go home, hoping she can go home tomorrow. OBJECTIVE: VITAL SIGNS: Temperature 37 degrees, heart rate 62 beats per minute, respiratory rate 14, blood pressure 102/57 mmHg; however, she has had some mild hypotension earlier this morning. She denies any lightheadedness, however. Oxygen saturation 94% on room air. Weight 47.6 kg. GENERAL: In no acute distress. She is alert. NECK: No JVD. CARDIAC EXAM: No ventricular heave. Regular, normal S1 and S2. There were no audible murmurs, rubs or gallops. LUNGS: Decreased breath sounds, but otherwise clear. ABDOMEN: Soft, nontender, and nondistended. Normoactive bowel sounds. EXTREMITIES: Right groin site is ecchymotic with a small hematoma, stable in size compared to yesterday. There are no audible bruits. No cyanosis or edema. PSYCHIATRIC: Affect appears appropriate. MEDICATIONS: Include aspirin 81 mg daily, atorvastatin 80 mg daily, Plavix 75 mg daily, Lexapro 10 mg daily, Aricept 5 mg at bedtime, lisinopril 5 mg daily, metoprolol succinate 25 mg daily, and spironolactone 25 mg daily. TELEMETRY: Personally reviewed. No arrhythmia in the past 24 hours. LABORATORY DATA: White blood cell count is 6, hemoglobin 10.3, and platelets 185. Sodium 129, potassium 4, BUN 8, and creatinine 0.55. Troponin trended down to 86.1. ASSESSMENT AND PLAN: 1. Left anterior descending ST-elevation myocardial infarction: No further angina. She underwent bare-metal stent within her proximal left anterior descending. Continue dual antiplatelet therapy with aspirin 81 mg daily indefinitely and Plavix for at least 1 year. Continue high intensity statin therapy. Continue low dose beta da. Cardiac rehabilitation. Continue SEKOU inhibitor as tolerated. 2. Ischemic cardiomyopathy: Repeat limited echo tomorrow to see if there is any improvement; however, if there is no improvement, there could be some at a later date. Continue spironolactone as tolerated as well as metoprolol and SEKOU inhibitor. 3. Coronary artery disease: Continue medical therapy as noted. 4. Hypertension: She has been normotensive and mildly hypotensive. Continue current medications if tolerated. Medications were not titrated for her cardiomyopathy given the fact that she is hypotensive at times as her systolic blood pressures intermittently in the 80s. We will continue current doses for now and titrate in the future if tolerated. 5. Idioventricular rhythm. No further arrhythmia noted on telemetry. Arrhythmia occurred within the first 24 hours of PCI. 6. Dyslipidemia: Continue high intensity statin therapy. 7. Right groin hematoma: Appears stable. 8. Tobacco abuse: Stop smoking. 9. Alcohol abuse: Stop consuming alcohol. 10. Disposition: Can be transferred to PCU today. Possible discharge home tomorrow. Cardiology will continue to follow. The patient's care discussed with Dr. Banuelos, the primary hospitalist service.
[2017-09-02] MEDS ORDERED: PNEUMOCOCCAL ADMINISTRATION CHARGE ONE (14:00)
[2017-09-02] MEDS ORDERED: PNEUMOCOCCAL POLYSACCHARIDES 25 MCG/0.5 ML VIAL/SYR IM. ONE (14:00)
[2017-09-02] MEDS: DONEPEZIL HCL 5 MG TAB PO SCH (20:17)
[2017-09-02] MEDS ORDERED: LIDODERM (LIDOCAINE) PATCH 5% TD ONE (21:00)
[2017-09-03 04:00] VITALS: BP 100/62; PULSE 64; TEMP 36.7; O2SAT 97
[2017-09-03 06:07] LABS: BASO % 0.3 %; BASO ABS # 0.02 K/uL (0-0.2); EOS % 0.8 %; EOS ABS # 0.05 K/uL (0-0.5); HEMATOCRIT 31.3 % (37-47); HEMOGLOBIN 10.8 g/dL (12.0-16.0); IG# 0.02 K/uL (0.00-0.02); LYMPH % 28.3 %; MEAN CELL VOLUME 88.9 fL (80-100); MEAN CORPUSCULAR HEMOGLOBIN 30.7 pg (25-34); MEAN CORPUSCULAR HGB CONC 34.5 g/dl (32-36); MEAN PLATELET VOLUME 8.8 fL (7.4-10.4); MONO % 9.3 %; MONO ABS # 0.59 K/uL (0.11-0.59); NEUT ABS # 3.89 K/uL (1.4-6.5); PLATELET COUNT 203 K/uL (130-400); RED CELL DISTRIBUTION WIDTH CV 13.8 % (11.5-14.5); RED CELL DISTRIBUTION WIDTH SD 45.2 fL (36.4-46.3); WHITE BLOOD COUNT 6.37 K/uL (4.8-10.8)
[2017-09-03 06:39] LABS: CALCIUM 8.3 mg/dl (8.5-10.1); CREATININE 0.56 mg/dl (0.60-1.20); POTASSIUM 3.8 mmol/L (3.5-5.1)
--- NOTE | 2017-09-03 07:19 | OPERATIVE REPORT ---
DATE OF OPERATION: 08/31/2017 CARDIAC CATHETERIZATION AND PERCUTANEOUS CORONARY INTERVENTION INDICATION: Acute versus subacute anteroseptal TN. PROCEDURE PERFORMED: Include left heart catheterization, coronary cineangiography, PCI with bare metal stent to proximal left anterior descending artery, radiological interpretation and supervision. METHOD: Upon arrival in the record label internship, the patient was prepped and draped in usual sterile fashion. After local infiltration of 2% lidocaine and after failed attempt at radial access, a 6-Martiniquais sheath was placed in the right femoral artery. Sheath was aspirated and flushed. A 6-Martiniquais EBU 4 guiding catheter was advanced over a wire under fluoroscopic guidance to the central circulation where it was aspirated and flushed. After confirmation of adequate waveforms, it was advanced into the left main. Cineangiograms of the left anterior descending artery obtained and reviewed. Intravenous heparin was administered and titrated to an ACT 300 seconds. A 0.014 inch Prowater wire was advanced through the guiding catheter across the area of stenosis of the apical LAD. A 2.0 x 15 compliant balloon was advanced into the proximal left anterior descending artery immediately distal to the first septal category specialist inflated to maximum pressure less than 1 minute and balloon was withdrawn. A 2.5 bare metal 12 mm stent was advanced into the stenotic area and inflated to maximum pressure of less than 1 minute. Balloon was withdrawn. The stented segment was postdilated using a 2.5 noncompliant 12 mm balloon to maximum pressure of less than 1 minute and the balloon was withdrawn. Final cineangiograms were obtained and the wire was removed from the coronary artery and guiding catheter removed from the left main under fluoroscopic guidance from the body over wire and sheath was aspirated and flushed. A 6-Martiniquais JR4 guiding catheter was advanced over wire under fluoroscopic guidance to the central circulation where it was aspirated and flushed. After confirmation of adequate waveform, it was advanced into the right coronary artery. Cineangiograms of the right coronary artery obtained and reviewed. Catheter used to cross the aortic valve in retrograde fashion. Left ventricular end diastolic pressure was measured. Catheter was removed from the left ventricle to the aorta and continuous pressure monitor removed from body over wire and the sheath was aspirated and flushed. Manual compression was held on the right femoral artery. The patient returned to her room in good condition. COMPLICATIONS: None. FINDINGS: Left main is moderately calcified but free of significant disease. Left anterior descending artery is small to moderate in caliber with a bulky calcified proximal total occlusion immediately distal to the first septal category specialist at the origin of the first diagonal branch. First diagonal branch was free of significant disease. Remainder of the LAD is occluded. Left circumflex, circumflex marginal and posterolateral branches are free of significant disease. The right coronary artery is calcified in its ostium, but free of significant disease in its proximal, mid and distal portion of the posterior descending artery. The posterior AV extension of the right coronary artery and posterolateral branches arising from it all free of significant disease. Left ventricular end diastolic pressure is normal. No significant aortic valve gradient Demonstrated. Final cineangiograms demonstrated no residual stenosis, no uncovered dissection with ZONIA grade 3 flow throughout the LAD and first diagonal branch. IMPRESSION: Successful angioplasty and bare metal stent placement proximal left anterior descending artery. RECOMMENDATION: Plavix plus aspirin for a minimum of 1 ideally 12 months. Medical therapy post-TN including beta da, SEKOU inhibitor as tolerated. Echocardiogram to evaluate LV systolic function. Risk factor modification including management of cholesterol and smoking cessation. I attest to the content of the Intraoperative Record and any orders documented therein. Any exception s are noted below.
[2017-09-03 08:00] VITALS: BP 124/64; PULSE 84; TEMP 36.9; O2SAT 98
[2017-09-03] MEDS: HEPARIN SOD 5000 UNIT/0.5 ML CARP SQ SCH (08:20)
[2017-09-03] MEDS: METOPROLOL SUCC 25MG EXT REL TAB PO SCH (08:20)
[2017-09-03] MEDS: LISINOPRIL 5 MG TAB PO SCH (08:20)
[2017-09-03] MEDS: ESCITALOPRAM OXALATE 10 MG TAB PO SCH (08:20)
[2017-09-03] MEDS: ATORVASTATIN 40 MG TAB PO SCH (08:20)
[2017-09-03] MEDS: CLOPIDOGREL BISULFATE 75 MG TAB PO SCH (08:20)
[2017-09-03] MEDS: ASPIRIN 81 MG ECTAB PO SCH (08:21)
[2017-09-03] MEDS: SPIRONOLACTONE 25 MG TAB PO SCH (08:21)
--- NOTE | 2017-09-03 10:03 | CARDIOLOGY PROGRESS NOTE ---
DATE: 09/03/2017 TIME: 08:36 a.m. SUBJECTIVE: She denies chest pain, palpitations, syncope, near syncope, shortness of breath or edema. She denies bleeding. OBJECTIVE: VITAL SIGNS: Temperature 36.7 degrees, heart rate 64 beats per minute, respiratory rate 16, blood pressure 100/62 mmHg, and oxygen saturation 97% on room air. Weight 45.3 kg. GENERAL: No acute distress. She is alert. NECK: No JVD. CARDIAC EXAM: No ventricular heave. Regular, normal S1 and S2. There were no audible murmurs, rubs or gallops. LUNGS: Clear to auscultation bilaterally. ABDOMEN: Soft, nontender, and nondistended. Normoactive bowel sounds. EXTREMITIES: Right groin site is ecchymotic with a very small hematoma. No cyanosis or edema. PSYCHIATRIC: Affect appears appropriate. MEDICATIONS: Include aspirin 81 mg daily, Plavix 75 mg daily, atorvastatin 80 mg daily, Aricept 5 mg daily, heparin 5000 units subQ q. 12 hours, lisinopril 5 mg daily, metoprolol succinate 25 mg daily, and spironolactone 25 mg daily. LABORATORY DATA: White blood cell count is 6.37, hemoglobin 10.8, and platelets 203. Sodium 131, potassium 3.8, BUN 7, and creatinine 0.56. ECG on 09/03/2017 personally reviewed. Sinus rhythm at 62 beats per minute. Anteroseptal infarct with residual ST elevations throughout the anterior and lateral leads. Prolonged QT. Telemetry personally reviewed. Sinus rhythm. No ventricular arrhythmia noted in the past 24 hours. ASSESSMENT AND PLAN: 1. Acute left anterior descending ST-elevation myocardial infarction: She has not had any angina since stent placement. Continue aspirin 81 mg daily indefinitely for proximal LAD bare-metal stent. Continue Plavix, preferably for at least 1 year. Continue high intensity statin therapy, beta da, and SEKOU inhibitor. Cardiac rehabilitation recommended. 2. Ischemic cardiomyopathy: She appears euvolemic. Continue spironolactone, SEKOU inhibitor and beta da. Repeat limited echo today. If LV systolic function is 35% or less, would recommend a LifeVest for primary prevention of sudden cardiac from ventricular arrhythmia with anticipation of proceeding to ICD if her LV systolic function is not improved. This was discussed with her and she is willing to undergo ICD if indicated as well as LifeVest. Echo pending. 3. Coronary artery disease: Continue medical therapy. 4. Hypertension: Blood pressure is normotensive and occasionally hypotensive and therefore, no further titration of medications at this time for her cardiomyopathy. Hopefully, these can be titrated in the near future. 5. Idioventricular arrhythmia: This occurred shortly after reperfusion. No further ventricular arrhythmia. 6. Dyslipidemia: Continue high intensity statin therapy. 7. Right groin hematoma: Stable in appearance. 8. Tobacco and alcohol abuse: Recommended that she stop smoking and refrain from alcohol abuse. 9. Disposition: Nursing staff is indicated that she appears weak and a bit unstable while standing. PT consult is pending. From a cardiac standpoint, if a LifeVest is indicated and she is able to receive that today, she would be okay for discharge. If a LifeVest is not indicated, she would be okay from discharge from a cardiac standpoint as long as she is able to safely maneuver as per PT. The patient's care was discussed with nursing staff. DORIAN
[2017-09-03 12:08] VITALS: BP 98/64; PULSE 109; TEMP 37.4; O2SAT 91
--- NOTE | 2017-09-03 14:09 | Family Medicine Progress Note ---
Progress Note Date of Service Sep 03, 2017. Subjective Pt evaluation today including: conversation w/ patient, conversation w/ family , physical exam Pain: none PO Intake: good Voiding: no voiding problems, no incontinence Patient without any chest pain or shortness of breath Discussed lifevest with patient for primary prevention of sudden cardiac We are awaiting for repeat echo results Constitutional: No fever, No chills, No sweats Respiratory: No cough, No sputum, No shortness of breath, No dyspnea on exertion Cardiovascular: No chest pain, No edema, No palpitations Abdomen: No pain, No nausea, No vomiting, No diarrhea Female : No dysuria, No urinary frequency Heme: No abnormal bleeding/bruising Medications Current Inpatient Medications Medications (Trade) Dose Ordered Sig/Natalia Route Start Time Stop Time Status Last Admin Dose Admin Lisinopril (Zestril Tab) 5 mg QAM PO 09/01/17 09:00 10/01/17 08:59 09/03/17 08:20 5 MG Calcium Carbonate (Tums Chew Tab) 500 mg UD PRN PO 09/01/17 00:30 10/01/17 00:29 Escitalopram Oxalate (Lexapro Tab) 10 mg DAILY PO 09/01/17 09:00 10/01/17 08:59 09/03/17 08:20 10 MG Lorazepam (Ativan Tab) 0.25 mg DAILY PRN PO 09/01/17 00:30 10/01/17 00:29 Donepezil HCl (Aricept Tab) 5 mg HS PO 09/01/17 21:00 10/01/17 20:59 09/02/17 20:17 5 MG Lorazepam (Ativan Tab) 1 mg ONE PRN PO 09/01/17 00:30 Heparin Sodium (Porcine) (Heparin Sq 5000 Unit/0.5ml) 5,000 unit Q12 SQ 09/01/17 09:00 10/01/17 08:59 09/03/17 08:20 5,000 UNIT Atorvastatin Calcium (Lipitor Tab) 80 mg QAM PO 09/02/17 09:00 10/02/17 08:59 09/03/17 08:20 80 MG Aspirin (Ecotrin Tab) 81 mg QAM PO 09/02/17 09:00 10/02/17 08:59 09/03/17 08:21 81 MG Clopidogrel Bisulfate (plAVix TAB) 75 mg QAM PO 09/02/17 09:00 10/02/17 08:59 09/03/17 08:20 75 MG Metoprolol Succinate (Toprol Xl Tab) 25 mg QAM PO 09/02/17 09:00 10/02/17 08:59 09/03/17 08:20 25 MG Spironolactone (Aldactone Tab) 25 mg QAM PO 09/02/17 09:00 10/02/17 08:59 09/03/17 08:21 25 MG Objective Vital Signs Date Time Temp Pulse Resp B/P (MAP) Pulse Ox O2 Delivery O2 Flow Rate FiO2 09/03/17 12:08 37.4 109 16 98/64 (75) 91 Room Air 09/03/17 12:00 Room Air 09/03/17 08:00 36.9 84 18 124/64 (84) 98 09/03/17 08:00 Room Air 09/03/17 04:00 Room Air 09/03/17 04:00 36.7 64 16 100/62 (75) 97 Nasal Cannula 2.0 09/02/17 23:59 Room Air 09/02/17 23:06 36.7 62 16 89/57 (68) 93 Room Air 93/55 (68) 09/02/17 20:00 Room Air 09/02/17 19:59 36.6 67 22 104/69 (81) 95 Room Air 09/02/17 16:00 Room Air 09/02/17 15:31 36.7 64 20 107/69 (82) 94 Room Air Physical Exam General Appearance: WD/WN, no apparent distress ENT: hearing grossly normal, pharynx normal Neck: no JVD, no carotid bruits, trachea midline Respiratory/Chest: lungs clear, no respiratory distress, no accessory muscle use Cardiovascular: regular rate, rhythm, no edema, no murmur Abdomen: normal bowel sounds, non tender, soft Extremities: non-tender, no pedal edema, no calf tenderness, normal capillary refill Neurologic/Psychiatric: alert, normal mood/affect, oriented x 3 Skin: normal color, warm/dry, no rash Laboratory Results Results Past 24 Hours Test 09/03/17 05:28 Range/Units White Blood Count 6.37 4.8-10.8 K/uL Red Blood Count 3.52 4.2-5.4 M/uL Hemoglobin 10.8 12.0-16.0 g/dL Hematocrit 31.3 37-47 % Mean Corpuscular Volume 88.9 80-100 fL Mean Corpuscular Hemoglobin 30.7 25-34 pg Mean Corpuscular Hemoglobin Concent 34.5 32-36 g/dl Platelet Count 203 130-400 K/uL Mean Platelet Volume 8.8 7.4-10.4 fL Neutrophils (%) (Auto) 61.0 % Lymphocytes (%) (Auto) 28.3 % Monocytes (%) (Auto) 9.3 % Eosinophils (%) (Auto) 0.8 % Basophils (%) (Auto) 0.3 % Neutrophils # (Auto) 3.89 1.4-6.5 K/uL Lymphocytes # (Auto) 1.80 1.2-3.4 K/uL Monocytes # (Auto) 0.59 0.11-0.59 K/uL Eosinophils # (Auto) 0.05 0-0.5 K/uL Basophils # (Auto) 0.02 0-0.2 K/uL RDW Standard Deviation 45.2 36.4-46.3 fL RDW Coefficient of Variation 13.8 11.5-14.5 % Immature Granulocyte % (Auto) 0.3 % Immature Granulocyte # (Auto) 0.02 0.00-0.02 K/uL Sodium Level 131 136-145 mmol/L Potassium Level 3.8 3.5-5.1 mmol/L Chloride Level 101 98-107 mmol/L Carbon Dioxide Level 24 21-32 mmol/L Anion Gap 6.0 3-11 mmol/L Blood Urea Nitrogen 7 7-18 mg/dl Creatinine 0.56 0.60-1.20 mg/dl Est Creatinine Clear Calc Drug Dose 54.7 ml/min Estimated GFR () 102.1 Estimated GFR (Non- 88.1 BUN/Creatinine Ratio 12.4 10-20 Random Glucose 89 70-99 mg/dl Calcium Level 8.3 8.5-10.1 mg/dl Assessment and Plan This is an 82 yo f that presented to us with chest pain which started COMPENSATION DIRECTOR and on evaluation in the ED she was found to have a STEMI. A heart alert was called and patient was brought to the dental laboratory supervisor for catheterization. The patient had a 100% occluded LAD and a bare metal stent was deployed with successful revascularization with some AIVR runs which resolved with 5 mg of IV metoprolol. Echo revealed that the patient had significant damage to her heart resulting in an EF of approx 35% and akinesis. STEMI s/p stent placement - the plan was discussed with the automation manager and agree with recs - continue ASA 81 mg and Plavix 75 mg - Atorvastatin was increased from 20 to 80 mg daily - continue Lisinopril 5 mg and Metoprolol 25 mg in am - Addition of spironolactone 25 mg - Dr. Ochoa recommends that the patient get repeat echo this afternoon and if patients EF is less than 35% then he recommends a lifevest for primary prevention of [place] and the patient will eventually need a ICD, patient was made aware and was in agreement with this - plan for [facility] on d/c Hyponatremia - sodium at 131 this morning, continue to monitor - considering EF will fluid restrict to 1500cc DMII - HBA1C- 5.8 % - patient is currently not on any medications so most likely diet controlled - will follow [facility] ACHS and add sliding scale if needed Tobacco abuse - Reportedly smokes 1-1/2 packs per day - Tobacco counseling- now agreeable Depression/dementia-- - Continue Lexapro 10 mg by mouth daily and donepezil 5 mg by mouth at bedtime - patient is currently oriented x 3 DVt prophylaxis - heparin bid Dispo - PT/OT cleared patient to go home, currently awaiting repeat echo and approval for lifevest full code Continued [facility] stay due to: other Discharge planning: home
[2017-09-03] MEDS ORDERED: PLV75 PO (14:22)
[2017-09-03] MEDS ORDERED: TPRSR25 PO (14:22)
[2017-09-03] MEDS ORDERED: SPR25 PO (14:22)
[2017-09-03] MEDS ORDERED: LSN5 PO (14:22)
[2017-09-03] MEDS ORDERED: LPT40 PO (14:22)
--- NOTE | 2017-09-03 14:28 | Discharge Instructions ---
Discharge Instructions Date of Service Sep 03, 2017. Admission Reason for Admission: Occlusion Of Lad Artery, Stemi Discharge Discharge Diagnosis / Problem: CA Discharge Goals Goal(s): Improve disease control, Improve nutritional status, Therapeutic intervention, Prevent Disease Progression Activity Recommendations Activity Limitations: per Instructions/Follow-up section . Instructions / Follow-Up Instructions / Follow-Up You had a heart attack We sent you to the cathead worker and you had one stent placed into an artery in your heart Your heart muscle was damaged and therefore you will need a lifevest to wear to prevent your heart from suddenly stopping You will need to follow up with cardiology to discuss placement of an ICD for nursing home prevention of sudden heart problems We will be sending you home with many new prescriptions. Please organize these out and take them as prescribed. Please follow up with your PCP and wood box maker If you have any worsening chest pain, shortness of breath, or palpitations then please come back to the emergency department Current Hospital Diet Patient's current hospital diet: AHA Diet (Heart Healthy) Discharge Diet Recommended Diet: AHA Diet (Heart Healthy), Diabetes Type 2 Diet Pending Studies Studies pending at discharge: no Laboratory Results Hemoglobin A1c Test 09/01/17 05:02 Range/Units Estimated Average Glucose 120 mg/dl Hemoglobin A1c 5.8 H 4.5-5.6 % Lipid Panel Test 08/31/17 20:22 Range/Units Triglycerides Level 285 H 0-150 mg/dl Cholesterol Level 230 H 0-200 mg/dl HDL Cholesterol 45 mg/dl Cholesterol/HDL Ratio 5.1 LDL Cholesterol, Calculated 128 mg/dl Medical Emergencies . Who to Call and When: Medical Emergencies: If at any time you feel your situation is an emergency, please call 911 immediately. . Non-Emergent Contact Non-Emergency issues call your: Primary Care Provider, Consulting Application Engineer . . "Provider Documentation" section prepared by Warren Nicholson. . VTE Core Measure Inpt VTE Proph given/why not?: Unfractionated heparin SQ
--- NOTE | 2017-09-03 16:05 | ECHOCARDIOGRAM REPORT ---
*NOTICE TO RECEIVING [employer] This information is strictly Confidential and protected under [place] law. [place] law prohibits you from making any further disclosure of this information unless further disclosure is expressly permitted by the written consent of the person to whom it pertains or is authorized by law. A general authorization for the release of medical or other information is not sufficient for this purpose. Hospital accepts no responsibility if the information is made available to any other person, INCLUDING THE PATIENT. Interpretation Summary * Name: ARCHANA SANTIAGO Study Date: 09/03/2017 12:19 PM BP: 98/64 mmHg * Patient Location: C.2T\S\S232\S\1 HR: 63 * : 1935 (M/d/yyyy) Gender: Female Height: 59 in * Age: 82 yrs Ethnicity: CA Weight: 104 lb * Ordering Physician: Gary Ochoa * Referring Physician: Self, Referred * Performed By: Lluvia Francisco RDCS * * Reason For Study: EVALUATE LV SYSTOLIC FUNCTION AND WALL MOTION * BSA: 1.4 m2 * -- Conclusions -- * 1. Normal LV size, asymmetric basal septal hypertrophy. * 2. Mild LV dysfunction. LVEF 45-50%. Large LAD wall motion abnormality (see below for details). * 3. Normal RV size and function. * 4. Aortic valve sclerosis without stenosis. * 5. Trace pericardial effusion. * 6. Compared with prior study on 09/01/2017: LV function improved. Procedure Details * Limited views were obtained. Left Ventricle * The left ventricle is grossly normal size. * The basal septum is thickened and angulated consistent with sigmoid septum. * There is mild concentric left ventricular hypertrophy. * Ejection Fraction = 45-50%. * Large LAD wall motion abnormality (akinesis of the mid anteroseptum, apical anterior, apical lateral, and apical septal wall segments; hypokinesis of the mid anterior, septal, lateral and apical inferior segments. Right Ventricle * The right ventricle is grossly normal size. * The right ventricular systolic function is normal as assessed by tricuspid annular plane systolic excursion (TAPSE) (normal >1.5 cm). Atria * The left atrial size is normal. * Right atrial size is normal. * No ASD detected; PFO is not assessed. Mitral Valve * The mitral valve is grossly normal. * There is mild mitral annular calcification. * There is mild mitral valve prolapse. * There is no mitral valve stenosis. Aortic Valve * The aortic valve opens well. * Aortic valve sclerosis mild, without significant aortic valvular stenosis. * No hemodynamically significant valvular aortic stenosis. * There is no significant aortic regurgitation. Great Vessels * The aortic root and proximal ascending aorta are normal sized. Pericardium/Pleural * Small pericardial effusion. MMode 2D Measurements and Calculations LVAd ap4 24.2 cm\S\2 LVLd ap4 8.0 cm EDV(MOD-sp4) 60.0 ml EDV(sp4-el) 62.4 ml LVAs ap4 14.0 cm\S\2 LVLs ap4 7.2 cm ESV(MOD-sp4) 23.6 ml ESV(sp4-el) 23.3 ml EF(MOD-sp4) 60.7 % EF(sp4-el) 62.7 % SV(MOD-sp4) 36.4 ml SI(MOD-sp4) 26.1 ml/m\S\2 SV(sp4-el) 39.1 ml SI(sp4-el) 28.0 ml/m\S\2
[2017-09-03 16:07] VITALS: BP 102/67; PULSE 59; TEMP 36.3; O2SAT 96
[2017-09-03 17:04] VITALS: BP 102/67; PULSE 59; TEMP 36.3; O2SAT 96
[2017-09-03] MEDS ORDERED: LISI-729 PO (17:31)
[2017-09-03] MEDS ORDERED: ATOR-26 PO (17:31)
[2017-09-03] MEDS ORDERED: ASPI81TA28 PO (17:31)
[2017-09-03] MEDS ORDERED: SPIR25TA PO (17:31)
[2017-09-03] MEDS ORDERED: CLOP1TAB15 PO (17:31)
[2017-09-03] MEDS ORDERED: METO25TA3 PO (17:31)
--- NOTE | 2017-09-04 11:51 | Discharge Summary ---
Discharge Summary Date of Service Sep 04, 2017. Discharge Summary Admission Date: Aug 31, 2017 at 23:19 Discharge Date: Sep 03, 2017 Discharge Disposition: Home Principal Diagnosis: Myocardial Infarction Problems/Secondary Diagnoses: (1) Hyperlipidemia Nec/Nos Status: Chronic (2) Hypertension Status: Chronic Immunizations: Have You Had Influenza Vaccine: Unknown History of Tetanus Vaccine?: Unknown History of Pneumococcal: Unknown History of Hepatitis B Vaccine: Unknown Procedures: Heart Catheterization with stent placement Consultations: Cardiology Medication Reconciliation New Medications: Aspirin (Aspirin Ec) 81 Mg Tab 81 MG PO DAILY for 30 Days, #30 TAB Atorvastatin (Lipitor) 80 Mg Tab 1 TAB PO DAILY for 90 Days, #90 TAB 1 Refill Clopidogrel (Plavix) 75 Mg Tab 75 MG PO DAILY for 30 Days, #30 TAB Lisinopril (Zestril) 5 Mg Tab 5 MG PO QAM for 30 Days, #30 TAB Metoprolol Succ (Toprol Xl) (Toprol-Xl) 25 Mg Tabcr 25 MG PO DAILY for 30 Days, #30 TAB Spironolactone (Aldactone) 25 Mg Tab 25 MG PO QAM for 30 Days, #30 TAB Continued Medications: Aspirin (Aspirin Adult Low Dose) 81 Mg Tab 81 MG PO DAILY Calcium Carbonate (Tums) 500 Mg Chew 500 MG PO UD PRN for Indigestion TAKE PER PACKAGE DIRECTIONS Donepezil Hydrochloride (Donepezil Hcl) 5 Mg Tab 5 MG PO HS Escitalopram Oxalate (Lexapro) 10 Mg Tab 10 MG PO DAILY, TAB Lorazepam (Ativan) 0.5 Mg Tab 0.25 MG PO UD PRN for Severe Anxiety, TAB Discontinued Medications: Amlodipine (Norvasc) 5 Mg Tab 5 MG PO DAILY, TAB Atorvastatin (Lipitor) 20 Mg Tab 20 MG PO HS, TAB Discharge Exam Please see daily progress note for Comments, Review of Systems and Physical Exam Hospital Course This is an 82 yo f that presented to us with 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 A heart alert was called and patient was brought to the operations label clerk for catheterization. The patient had a 100% occluded LAD and a bare metal stent was deployed with successful revascularization with some AIVR runs which resolved with 5 mg of IV metoprolol. Echo revealed that the patient had significant damage to her heart resulting in an EF of approx 35% and akinesis. STEMI s/p stent placement - continue ASA 81 mg and Plavix 75 mg - Atorvastatin was increased from 20 to 80 mg daily - continue Lisinopril 5 mg and Metoprolol 25 mg in am - Addition of spironolactone 25 mg - repeat echo showed EF of 45-50% - will follow up with cardiology as outpatient and may need to discuss ICD placement - plan for [facility] on d/c Hyponatremia - sodium at 131 on discharge - patient will be following up with PCP on discharge for repeat BMP DMII - HBA1C- 5.8 % - patient is currently not on any medications, diet controlled Tobacco abuse - Reportedly smokes 1-1/2 packs per day - Tobacco counseling given Depression/dementia - Continue Lexapro 10 mg by mouth daily and donepezil 5 mg by mouth at bedtime DVt prophylaxis - heparin bid Dispo - PT/OT cleared patient to go home Resident Physician Supervision Note: I interviewed and examined the patient. Discussed with Dr. Warren Nicholson and agree with findings and plan as documented in the note. Any exceptions or clarifications are listed here: None this pt has recovered well after a fairly substantial ND and urgent stent, we did discuss the need to stop smoking and to continue her medications, her daughter was at the bedside and reinforces that she will oversee her medications vitals are stable lungs are clear, heart is regular s/p acute ND and stent, continue usual post intervetion medication cocktail and close outpt followup, arrangement for [facility] to be completed Documented By: Carl Kimball Total Time Spent: Less than 30 minutes This includes examination of the patient, discharge planning, medication reconciliation, and communication with other providers. Discharge Instructions Please refer to the electronic Patient Visit Report (Discharge Instructions) for additional information. Additional Copies To Carey Morris C.R.N.P.; Jaya Almodovar M.D.
== END 2017-09-03 18:06 | disposition home or self-care (01) | DRG 249 ==
LOC: EDBD 20:12 → C.EDA 20:17 → C.MSICU 23:19 → ENRESERV 09-02 08:36 → EDBEDREQ 09-02 08:44 → C.2T 09-02 09:34
PROVIDERS: ADMIT Hospitalist; ATTEND Family Medicine
PROC: 4A023N7 Measurement of Cardiac Sampling and Pressure, Left Heart, Percutaneous Approach (ICD-10-PCS; principal; 2017-08-31 20:53)
PROC: 02703DZ Dilation of Coronary Artery, One Artery with Intraluminal Device, Percutaneous Approach (ICD-10-PCS; principal; 2017-08-31 20:53)
PROC: B2111ZZ Fluoroscopy of Multiple Coronary Arteries using Low Osmolar Contrast (ICD-10-PCS; principal; 2017-08-31 20:53)
DX: I21.02 ST elevation (STEMI) myocardial infarction involving left anterior descending coronary artery (principal); E87.1 Hypo-osmolality and hyponatremia; E11.9 Type 2 diabetes mellitus without complications; E78.5 Hyperlipidemia, unspecified; Z82.49 Family history of ischemic heart disease and other diseases of the circulatory system; F17.210 Nicotine dependence, cigarettes, uncomplicated; I10 Essential (primary) hypertension; I25.119 Atherosclerotic heart disease of native coronary artery with unspecified angina pectoris; F03.90 Unspecified dementia, unspecified severity, without behavioral disturbance, psychotic disturbance, mood disturbance, and anxiety; J44.9 Chronic obstructive pulmonary disease, unspecified; I25.5 Ischemic cardiomyopathy; Z79.82 Long term (current) use of aspirin; F10.10 Alcohol abuse, uncomplicated